=== PATIENT | female | born 1990 | race Caucasian/White ===

== ENCOUNTER 2019-05-21 22:57 | Emergency (ER) | payer SELFPAY ==
--- NOTE | 2019-05-21 23:01 | ED_ITS ---
HPI - Female Genitourinary General: Chief complaint: Abdominal Pain Stated complaint: blood in urine Time Seen by Provider: 05/21/19 23:01 Source: patient Mode of arrival: ambulatory Limitations: no limitations History of Present Illness: HPI Narrative: Patient is a 28-year-old female who presents to ED today with complaints of dysuria and hematuria; patient also complains of some lower back pain; she states she has a history of UTIs states her symptoms today feel similar; patient denies nausea, vomiting, changes in bowel movements; she does have a little bit of lower suprapubic abdominal pain; patient denies vaginal discharge or vaginal odor; she has no new sexual partners or concern for STDs; denies flank pain MD elicited complaint: dysuria, UTI and back pain Vaginal discharge: none Vaginal bleeding: none Urinary symptoms: Dysuria and Hematuria Exacerbating factors: none Relieving factors: none Associated symptoms: Reports abdominal pain; Deny nausea or syncope Sexual activity: Yes Patient : No Review of Systems Const: Denies: fever or chills Card: Denies: chest pain, palpitations, irregular heart rhythm, lightheadedness, syncope or shortness of breath on exertion Resp: Denies: shortness of breath, productive cough or pain on inspiration GI: Reports: abdominal pain; Denies: nausea, vomiting, heartburn/indigestion, diarrhea, constipation, change in bowel habits, painful bowel movements or rectal pain : Reports: painful urination and blood in urine; Denies: flank pain, difficulty urinating, urinary frequency, urinary urgency or urinary hesitancy Musc: Reports: back pain; Denies: neck pain or joint pain Skin/Breast: Denies: rash PFSH ED PFSH: Statuses (acute, chronic, etc) shown below reflect problem list status as previously entered and may not be historically accurate Social History Smoking and tobacco status: current every day smoker Physical Exam Const: COMMON NORMALS: no apparent distress, average body habitus, oriented x3, alert and well nourished Resp: COMMON NORMALS: normal respiratory effort and clear to auscultation bilaterally AUSCULTATION: clear to auscultation bilaterally Cardio: COMMON NORMALS: regular rate and regular rhythm RATE: regular rate RHYTHM: regular rhythm GI: COMMON NORMALS: normal to inspection, nondistended, normoactive bowel sounds, soft to palpation, no hepatosplenomegaly and no masses PALPATION: Yes soft, Yes tender (suprapubic) and Yes no hepatosplenomegaly : COMMON NORMALS: Yes no CVA tenderness BLADDER/KIDNEY EXAM: Yes no CVA tenderness Back/Pelvis: COMMON NORMALS: no CVA tenderness OTHER: TTP lower back Neuro: COMMON NORMALS: oriented x3 SENSORIUM/ORIENTATION: Yes alert Skin: COMMON NORMALS: no rashes or lesions noted GENERAL SKIN EXAM: no rashes or lesions noted Course Vital Signs: Vital signs: Vital Signs Temperature 97.6 F 05/21/19 23:02 Pulse Rate 68 05/21/19 23:02 Respiratory Rate 18 05/21/19 23:02 Blood Pressure 98/52 05/21/19 23:02 Pulse Oximetry 98 05/21/19 23:02 MDM - Female Lab Data: Labs: Lab Results 05/21/19 05/21/19 05/21/19 Range/Units 23:19 23:28 23:28 WBC 8.3 (4.0-10.0) 10^3/ uL RBC 4.55 (4.1-5.3) 10^6/u L Hgb 10.9 L (11.5-15.3) g/dL Hct 35.1 L (37.0-47.0) % MCV 77.1 L (81-99) fL MCH 24.0 L (28.0-34.0) pg MCHC 31.1 (30.0-36.0) g/dL RDW 15.7 H (12.1-15.1) % Plt Count 272 (130-400) 10^3/c mm MPV 12.1 H (7.4-10.4) fL Neut % (Auto) 63.6 % Lymph % (Auto) 28.1 % [place] % (Auto) 6.2 % Eos % (Auto) 1.1 % Baso % (Auto) 0.6 % Neut # (Auto) 5.3 (1.8-7.7) 10^3/u L Lymph # (Auto) 2.3 (0.8-4.8) 10^3/u L [place] # (Auto) 0.5 (0.2-0.9) 10^3/u L Eos # (Auto) 0.1 (0.0-0.8) 10^3/u L Baso # (Auto) 0.1 (0.0-0.1) 10^3/u L Nucleated RBC % (a uto) 0 % Nucleated RBCs # 0.0 /100WBC Sodium (136-145) mmol/L Potassium (3.5-5.1) mmol/L Chloride (98-107) mmol/L Carbon Dioxide (22-29) mmol/L Anion Gap (5-19) BUN (6-20) mg/dL Creatinine (0.5-0.9) mg/dL GFR Calculation (90-130) mL/min Glucose (74-109) mg/dL Calcium (8.5-10.5) mg/dL Total Bilirubin (0.15-1.2) mg/dL AST (0-32) U/L ALT (0-33) U/L Alkaline Phosphata se (35-105) IU/L Total Protein (6.6-8.7) g/dL Albumin (3.5-5.2) g/dL Globulin (1.3-4.6) g/dL Urine Color Dark yellow (Yellow) Urine Appearance Hazy A (CLEAR) Urine pH 8 H (5-7) Ur Specific Gravit y 1.010 (1.005-1.030) Urine Protein Trace (Negative) Urine Glucose (UA) Norm (Normal) Urine Ketones Negative (Negative) Urine Occult Blood 3+ H (Negative) Urine Nitrate Positive H (Negative) Urine Bilirubin 1+ H (NEGATIVE) Prot Sulfosalicyli c Acd Negative Urine Urobilinogen 1 H (Negative) mg/dL Ur Leukocyte Lizzeth ase Negative (Negative) Urine RBC 0-4 H (0-2) /hpf Urine WBC Rare (0-5) /hpf Ur Squamous Epith Cells 10-15 H (0-5) Amorphous Sediment 2+ Urine Bacteria 1+ H (NONE) Urine Mucus N Urine HCG, Qual Negative (Negative) 05/21/19 Range/Units 23:28 WBC (4.0-10.0) 10^3/ uL RBC (4.1-5.3) 10^6/u L Hgb (11.5-15.3) g/dL Hct (37.0-47.0) % MCV (81-99) fL MCH (28.0-34.0) pg MCHC (30.0-36.0) g/dL RDW (12.1-15.1) % Plt Count (130-400) 10^3/c mm MPV (7.4-10.4) fL Neut % (Auto) % Lymph % (Auto) % [place] % (Auto) % Eos % (Auto) % Baso % (Auto) % Neut # (Auto) (1.8-7.7) 10^3/u L Lymph # (Auto) (0.8-4.8) 10^3/u L [place] # (Auto) (0.2-0.9) 10^3/u L Eos # (Auto) (0.0-0.8) 10^3/u L Baso # (Auto) (0.0-0.1) 10^3/u L Nucleated RBC % (a uto) % Nucleated RBCs # /100WBC Sodium 140 (136-145) mmol/L Potassium 3.9 (3.5-5.1) mmol/L Chloride 104 (98-107) mmol/L Carbon Dioxide 25 (22-29) mmol/L Anion Gap 14.9 (5-19) BUN 12 (6-20) mg/dL Creatinine 0.8 (0.5-0.9) mg/dL GFR Calculation 84.8 L (90-130) mL/min Glucose 88 (74-109) mg/dL Calcium 9.2 (8.5-10.5) mg/dL Total Bilirubin 0.2 (0.15-1.2) mg/dL AST 13 (0-32) U/L ALT 10 (0-33) U/L Alkaline Phosphata se 57 (35-105) IU/L Total Protein 7.1 (6.6-8.7) g/dL Albumin 4.5 (3.5-5.2) g/dL Globulin 2.6 (1.3-4.6) g/dL Urine Color (Yellow) Urine Appearance (CLEAR) Urine pH (5-7) Ur Specific Gravit y (1.005-1.030) Urine Protein (Negative) Urine Glucose (UA) (Normal) Urine Ketones (Negative) Urine Occult Blood (Negative) Urine Nitrate (Negative) Urine Bilirubin (NEGATIVE) Prot Sulfosalicyli c Acd Urine Urobilinogen (Negative) mg/dL Ur Leukocyte Lizzeth ase (Negative) Urine RBC (0-2) /hpf Urine WBC (0-5) /hpf Ur Squamous Epith Cells (0-5) Amorphous Sediment Urine Bacteria (NONE) Urine Mucus Urine HCG, Qual (Negative) Discharge Plan Discharge Patient Disposition: Home, Self-Care Clinical Impression: Acute cystitis with hematuria Condition: Stable Prescriptions: New Macrobid 100 mg capsule 100 mg PO BID 7 Days Qty: 14 RF: 0 Discharge Orders: Discharge Order (Routine); Ordered 05/22/19 Ordered By: Melisa South Referrals: Isaiah Arshad MD [Primary Care Provider] - Discharge Diet: Usual diet Discharge Activity: Resume usual activity Activity Restrictions/Additional Instructions: Follow-up with primary care in 3 to 4 days if symptoms do not begin to improve. You may return to the emergency department for worsening pain, severe flank pain, fevers greater than 100.4, or inability to keep down your medications. 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
[2019-05-21 23:02] VITALS: BP 98/52; PULSE 68; RESP 18; TEMP 36.4; O2SAT 98; BMI 24.0
[2019-05-21 23:35] LABS: Basophils # 0.1 10^3/uL (0.0-0.1); Basophils % 0.6 %; Eosinophils # 0.1 10^3/uL (0.0-0.8); Eosinophils % 1.1 %; Hematocrit 35.1 % (37.0-47.0); Hemoglobin 10.9 g/dL (11.5-15.3); Lymphocytes # 2.3 10^3/uL (0.8-4.8); Lymphocytes % 28.1 %; Mean Corpuscular HGB Conc 31.1 g/dL (30.0-36.0); Mean Corpuscular Volume 77.1 fL (81-99); Mean Platelet Volume 12.1 fL (7.4-10.4); Monocytes # 0.5 10^3/uL (0.2-0.9); Monocytes % 6.2 %; Neutrophils # 5.3 10^3/uL (1.8-7.7); Neutrophils % 63.6 %; Nucleated Red Blood Cells % 0 %; Platelet Count 272 10^3/cmm (130-400); Red Blood Count 4.55 10^6/uL (4.1-5.3); Red Cell Distribution Width 15.7 % (12.1-15.1); White Blood Count 8.3 10^3/uL (4.0-10.0)
[2019-05-21 23:46] LABS: Bacteria Urine 1+; Bilirubin Urine 1+ (NEGATIVE); Blood Urine 3+ (Negative); Glucose Urine UA Norm (Normal); Ketones Urine Negative (Negative); Leukocyte Esterase Urine Negative (Negative); Nitrate Urine Positive (Negative); Protein Urine Trace (Negative); RBC Urine 0-4 /hpf (0-2); Sulfosalicylic Acid Urine Negative; Urine Appearance Hazy (CLEAR); Urine Color Dark Yellow (Yellow); Urobilinogen Urine 1 mg/dL (Negative); WBC Urine RARE /hpf (0-5); pH Urine 8 (5-7)
[2019-05-21 23:47] LABS: Add Urine Culture? No; Amorphous Sediment Urine 2+; Mucus Urine N
[2019-05-21 23:49] LABS: Alanine Aminotransferase 10 U/L (0-33); Albumin Level 4.5 g/dL (3.5-5.2); Alkaline Phosphatase 57 IU/L (35-105); Anion Gap 14.9 (5-19); Aspartate Amino Transferase 13 U/L (0-32); Blood Urea Nitrogen 12 mg/dL (6-20); Calcium 9.2 mg/dL (8.5-10.5); Carbon Dioxide 25 mmol/L (22-29); Chloride 104 mmol/L (98-107); Globulin 2.6 g/dL (1.3-4.6); Glomerular Filtration Rate 84.8 mL/min (90-130); Glucose 88 mg/dL (74-109); Potassium 3.9 mmol/L (3.5-5.1); Sodium 140 mmol/L (136-145); Total Bilirubin 0.2 mg/dL (0.15-1.2); Total Protein 7.1 g/dL (6.6-8.7)
== END 2019-05-22 00:19 | disposition home or self-care (01) ==
PROVIDERS: Emergency Provider Physician Assistant; Family Provider Family Medicine; PCP Family Medicine
DX: N30.01 Acute cystitis with hematuria (principal); F17.210 Nicotine dependence, cigarettes, uncomplicated
CPT/HCPCS: 36415; 80053; 81001; 81025; 85025; 99282

== ENCOUNTER 2020-01-08 15:45 | Emergency (ER) | payer SELFPAY ==
[2020-01-08 16:07] VITALS: BP 110/73; PULSE 69; RESP 18; TEMP 36.8; O2SAT 98; BMI 25.0
[2020-01-08 16:14] VITALS: BP 110/73; RESP 16
[2020-01-08] MEDS: ondansetron 2 mg/ML SDV 2 mL 4 MG IVP (16:30)
[2020-01-08] MEDS: sodium chloride 0.9% 1,000 ML 999 ML IV (16:31)
[2020-01-08 16:36] LABS: Add Urine Microscopic? NO
[2020-01-08 16:38] LABS: Bilirubin Urine Neg (Negative); Blood Urine Neg (Negative); Glucose Urine UA Norm (Normal); Ketones Urine Negative (Negative); Leukocyte Esterase Urine Negative (Negative); Nitrate Urine Negative (Negative); Protein Urine Neg (Negative); Specific Gravity, Urine 1.005 (1.005-1.030); Urine Appearance Clear (CLEAR); Urine Color Colorless (Yellow); Urobilinogen Urine Norm (Negative); pH Urine 7 (5-7)
[2020-01-08 16:38] LABS: Basophils # 0.1 10^3/uL (0.0-0.1); Basophils % 0.6 %; Eosinophils # 0.1 10^3/uL (0.0-0.8); Eosinophils % 0.7 %; Hematocrit 38.4 % (37.0-47.0); Hemoglobin 12.2 g/dL (11.5-15.3); Lymphocytes # 2.4 10^3/uL (0.8-4.8); Lymphocytes % 24.8 %; Mean Corpuscular HGB Conc 31.8 g/dL (30.0-36.0); Mean Corpuscular Hemoglobin 25.1 pg (28.0-34.0); Mean Platelet Volume 12.1 fL (7.4-10.4); Monocytes # 0.5 10^3/uL (0.2-0.9); Monocytes % 5.3 %; Neutrophils # 6.54 10^3/uL (1.8-7.7); Neutrophils % 68.4 %; Nucleated Red Blood Cells % 0 %; Platelet Count 250 10^3/cmm (130-400); Red Blood Count 4.86 10^6/uL (4.1-5.3); Red Cell Distribution Width 16.8 % (12.1-15.1); White Blood Count 9.6 10^3/uL (4.0-10.0)
--- NOTE | 2020-01-08 16:47 | ED_ITS ---
HPI - Nausea/Vomiting/Diarrhea General: Chief complaint: Nausea/Vomiting/Diarrhea Stated complaint: N/V Time Seen by Provider: 01/08/20 16:10 History of Present Illness: HPI Narrative: 29-year-old female comes in complaining nausea vomiting for the last 3 to 4 days. Denies cough fever sinus congestion. She denies any melena coffee-ground emesis no hematochezia or hematemesis. She denies any abdominal pain or chest pain. She not had any sick contacts. MD elicited complaint: nausea and vomiting Onset (ago): day(s) (3-4) Description of vomiting: food contents Associated nausea: Yes Associated abdominal pain: No Location of pain: None Severity: moderate Exacerbating factors: none Relieving factors: none Associated symtoms: Reports anorexia, malaise and nausea; Denies altered mental status, anxiety, bloating, change in vision, chest pain, cough, diaphoresis, decreased urine output, dizziness, dysuria, epistaxis, fatigue, fecal incontinence, fevers/chills, headache(s), myalgias, numbness, palpitations, rash, short of breath, syncope, tenesmus, tinnitus, weakness or other Treatment prior to arrival: none Review of Systems Const: Reports: malaise; Denies: fatigue or diaphoresis Eyes: Denies: change in vision ENMT: Denies: tinnitus or epistaxis Card: Denies: chest pain, palpitations or syncope Resp: Denies: dyspnea, productive cough or non-productive cough GI: Reports: nausea; Denies: bloating or fecal incontinence : Denies: dysuria Skin/Breast: Denies: rash or pruritus Neuro: Denies: headache(s) or dizziness Psych: Denies: anxiety PFSH ED PFSH: Medical History (Updated 01/08/20 @ 17:21 by Bennett Baumann DO) Pyelonephritis Surgical History (Updated 01/08/20 @ 16:53 by Bennett Baumann DO) H/O tubal ligation History of breast augmentation Social History Smoking and tobacco status: current every day smoker Female Reproductive History: Date of last menstrual period: 05/11/19 Physical Exam Const: COMMON NORMALS: average body habitus, patient oriented x3 and alert EXAM LIMITATIONS: no altered mental status GENERAL APPEARANCE: cooperative, comfortable, well kempt and well developed NUTRITIONAL APPEARANCE: obese ORIENTATION/CONSCIOUSNESS: Yes awake, Yes oriented to person and Yes oriented to place HENMT: COMMON NORMALS: normocephalic, atraumatic and EAC's normal HEAD & SCALP: normocephalic and atraumatic EXTERNAL AUDITORY CANAL: EAC's normal Eye: COMMON NORMALS: Equal, round and reactive pupils present, EOMs intact vince aterally, conjunctivae normal and no scleral icterus CONJUNCTIVA: Yes conjunctivae normal PUPIL: Yes Equal, round and reactive pupils present Neck/C-Spine: COMMON NORMALS: full ROM, no lymphadenopathy, supple, no meningeal signs and Thyroid normal THYROID: Thyroid normal and asymmetrical Lymph: LYMPHATIC: no lymphadenopathy noted Resp: COMMON NORMALS: normal respiratory effort, No retractions, No use of accessory muscles and clear to auscultation bilaterally AUSCULTATION: clear to auscultation bilaterally Cardio: COMMON NORMALS: regular rate and regular rhythm RATE: regular rate RHYTHM: regular rhythm HEART SOUNDS: no murmurs GI: COMMON NORMALS: Normal to inspection, nondistended, normoactive bowel sounds present, Soft to palpation and No hepatosplenomegaly present PALPATION: Yes Soft to palpation and Yes No hepatosplenomegaly present : COMMON NORMALS: Yes no CVA tenderness BLADDER/KIDNEY EXAM: Yes no CVA tenderness Back/Pelvis: COMMON NORMALS: no CVA tenderness LUMBAR SPINE/LOWER BACK: Yes normal to inspection Extremity: COMMON NORMALS: no clubbing, cyanosis or edema, no calf tenderness and no pedal edema Neuro: COMMON NORMALS: patient oriented x3 SENSORIUM/ORIENTATION: Yes alert, Yes oriented to person and Yes oriented to place MENINGEAL SIGNS: Yes no meningeal signs Psych: APPEARANCE: Yes well kempt Skin: COMMON NORMALS: no rashes or lesions noted and turgor normal GENERAL SKIN EXAM: no rashes or lesions noted and turgor normal Course Vital Signs: Vital signs: Vital Signs Temperature 98.2 F 01/08/20 16:07 Pulse Rate 69 01/08/20 16:07 Respiratory Rate 16 01/08/20 16:14 Blood Pressure 110/73 01/08/20 16:14 Pulse Oximetry 98 01/08/20 16:07 MDM - Nausea/Vomiting/Diarrhea MDM Narrative: Medical decision making narrative: Reviewed findings with the patient. Recommend she maintain self quarantine until the culture results are back. Also recommend that she do clear liquid diet for 2 to 3 days and advance as tolerated. Return if has any worsening symptoms. Lab Data: Labs: Lab Results 01/08/20 01/08/20 01/08/20 Range/Units 16:25 16:28 16:28 WBC 9.6 (4.0-10.0) 10^3/ uL RBC 4.86 (4.1-5.3) 10^6/u L Hgb 12.2 (11.5-15.3) g/dL Hct 38.4 (37.0-47.0) % MCV 79.0 L (81-99) fL MCH 25.1 L (28.0-34.0) pg MCHC 31.8 (30.0-36.0) g/dL RDW 16.8 H (12.1-15.1) % Plt Count 250 (130-400) 10^3/c mm MPV 12.1 H (7.4-10.4) fL Neut % (Auto) 68.4 % Lymph % (Auto) 24.8 % [place] % (Auto) 5.3 % Eos % (Auto) 0.7 % Baso % (Auto) 0.6 % Neut # (Auto) 6.54 (1.8-7.7) 10^3/u L Lymph # (Auto) 2.4 (0.8-4.8) 10^3/u L [place] # (Auto) 0.5 (0.2-0.9) 10^3/u L Eos # (Auto) 0.1 (0.0-0.8) 10^3/u L Baso # (Auto) 0.1 (0.0-0.1) 10^3/u L Nucleated RBC % (a uto) 0 % Nucleated RBCs # 0.0 /100WBC Sodium 137 (136-145) mmol/L Potassium 3.7 (3.5-5.1) mmol/L Chloride 104 (98-107) mmol/L Carbon Dioxide 22 (22-29) mmol/L Anion Gap 14.7 (5-19) BUN 10 (6-20) mg/dL Creatinine 0.7 (0.5-0.9) mg/dL GFR Calculation 98.3 (90-130) mL/min Glucose 110 (65-115) mg/dL Calculated Osmolal ity 281 L (285-295) mOsm/k g Calcium 9.1 (8.5-10.5) mg/dL Total Bilirubin 0.3 (0.15-1.2) mg/dL AST 15 (0-32) U/L ALT 11 (0-33) U/L Alkaline Phosphata se 56 (35-105) IU/L Total Protein 7.9 (6.6-8.7) g/dL Albumin 4.7 (3.5-5.2) g/dL Globulin 3.2 (1.3-4.6) g/dL Lipase 37 (13-60) U/L HCG, Qual (Negative) Urine Color Colorless (Yellow) Urine Appearance Clear (CLEAR) Urine pH 7 (5-7) Ur Specific Gravit y 1.005 (1.005-1.030) Urine Protein Neg (Negative) Urine Glucose (UA) Norm (Normal) Urine Ketones Negative (Negative) Urine Blood Neg (Negative) Urine Nitrate Negative (Negative) Urine Bilirubin Neg (Negative) Urine Urobilinogen Norm (Negative) mg/dL Ur Leukocyte Lizzeth ase Negative (Negative) 01/08/20 Range/Units 16:28 WBC (4.0-10.0) 10^3/ uL RBC (4.1-5.3) 10^6/u L Hgb (11.5-15.3) g/dL Hct (37.0-47.0) % MCV (81-99) fL MCH (28.0-34.0) pg MCHC (30.0-36.0) g/dL RDW (12.1-15.1) % Plt Count (130-400) 10^3/c mm MPV (7.4-10.4) fL Neut % (Auto) % Lymph % (Auto) % [place] % (Auto) % Eos % (Auto) % Baso % (Auto) % Neut # (Auto) (1.8-7.7) 10^3/u L Lymph # (Auto) (0.8-4.8) 10^3/u L [place] # (Auto) (0.2-0.9) 10^3/u L Eos # (Auto) (0.0-0.8) 10^3/u L Baso # (Auto) (0.0-0.1) 10^3/u L Nucleated RBC % (a uto) % Nucleated RBCs # /100WBC Sodium (136-145) mmol/L Potassium (3.5-5.1) mmol/L Chloride (98-107) mmol/L Carbon Dioxide (22-29) mmol/L Anion Gap (5-19) BUN (6-20) mg/dL Creatinine (0.5-0.9) mg/dL GFR Calculation (90-130) mL/min Glucose (65-115) mg/dL Calculated Osmolal ity (285-295) mOsm/k g Calcium (8.5-10.5) mg/dL Total Bilirubin (0.15-1.2) mg/dL AST (0-32) U/L ALT (0-33) U/L Alkaline Phosphata se (35-105) IU/L Total Protein (6.6-8.7) g/dL Albumin (3.5-5.2) g/dL Globulin (1.3-4.6) g/dL Lipase (13-60) U/L HCG, Qual Negative (Negative) Urine Color (Yellow) Urine Appearance (CLEAR) Urine pH (5-7) Ur Specific Gravit y (1.005-1.030) Urine Protein (Negative) Urine Glucose (UA) (Normal) Urine Ketones (Negative) Urine Blood (Negative) Urine Nitrate (Negative) Urine Bilirubin (Negative) Urine Urobilinogen (Negative) mg/dL Ur Leukocyte Lizzeth ase (Negative) Discharge Plan Discharge Patient Disposition: Home Clinical Impression: Gastroenteritis Condition: Stable Prescriptions: New Zofran 4 mg tablet 4 mg PO Q6H PRN (Reason: nausea and vomiting) Qty: 20 RF: 0 No Action 28-800 mg-mcg Tablet 1 tab PO DAILY RF: 0 Discharge Orders: Discharge Order (Routine); Ordered 01/08/20 Ordered By: Bennett Baumann Referrals: Isaiah Arshad MD [Primary Care Provider] - Discharge Diet: Clear Liquid Discharge Activity: Resume usual activity Activity Restrictions/Additional Instructions: Liquid diet x3 days and advance as tolerated. 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
[2020-01-08 17:05] LABS: HCG, Serum Qual Negative (Negative)
[2020-01-08 17:12] LABS: Alanine Aminotransferase 11 U/L (0-33); Albumin Level 4.7 g/dL (3.5-5.2); Alkaline Phosphatase 56 IU/L (35-105); Anion Gap 14.7 (5-19); Aspartate Amino Transferase 15 U/L (0-32); Blood Urea Nitrogen 10 mg/dL (6-20); Calcium 9.1 mg/dL (8.5-10.5); Carbon Dioxide 22 mmol/L (22-29); Chloride 104 mmol/L (98-107); Globulin 3.2 g/dL (1.3-4.6); Glomerular Filtration Rate 98.3 mL/min (90-130); Glucose 110 mg/dL (65-115); Lipase 37 U/L (13-60); Osmolality Calculated 281 mOsm/kg (285-295); Potassium 3.7 mmol/L (3.5-5.1); Sodium 137 mmol/L (136-145); Total Bilirubin 0.3 mg/dL (0.15-1.2); Total Protein 7.9 g/dL (6.6-8.7)
== END 2020-01-08 17:45 | disposition home or self-care (01) ==
PROVIDERS: Emergency Provider Family Medicine; Family Provider Family Medicine; PCP Family Medicine
DX: K52.9 Noninfective gastroenteritis and colitis, unspecified (principal); F17.210 Nicotine dependence, cigarettes, uncomplicated
CPT/HCPCS: 12345; 80053; 81003; 83690; 84703; 85025; 87635; 96361; 96374; 96375; 99283; J2405; J7030

== ENCOUNTER 2020-03-30 15:52 | Emergency (ER) | payer MEDICAID, SELFPAY ==
[2020-03-30 15:59] VITALS: BP 108/73; PULSE 82; RESP 18; TEMP 36.4; O2SAT 99; BMI 23.6
--- NOTE | 2020-03-30 16:18 | ED_ITS ---
HPI - Female Genitourinary General: Chief complaint: Abdominal Pain Stated complaint: L SIDE ABD PAIN Time Seen by Provider: 03/30/20 16:07 Source: patient Mode of arrival: ambulatory Limitations: no limitations History of Present Illness: HPI Narrative: 29-year-old female has been having left lower quadrant left flank pain that began earlier this morning. States pain is sharp in nature and severe. States pain is a 7 out of 10. Denies any vomiting but has had nausea. Patient is currently on her menstruation. She denies any vaginal discharge. She has had a tubal ligation. She states she has had kidney infections in the past and this feels similar. Associated symptoms: Reports abdominal pain and nausea; Deny headache(s) Date of Last Menstrual Period: 05/11/19 Review of Systems Const: Denies: fever(s), chills, body aches or change in appetite Eyes: Denies: blurry vision or eye discomfort ENMT: Denies: throat pain or dental pain Card: Denies: chest pain Resp: Denies: dyspnea GI: Reports: abdominal pain and nausea : Reports: flank pain Musc: Denies: neck pain or back pain Skin/Breast: Denies: rash Neuro: Denies: headache(s) Psych: Denies: depression Reji/Lymph: Denies: easy bruising All/Imm: Denies: urticaria PFSH ED PFSH: Medical History (Updated 03/30/20 @ 17:59 by Jarocho Vergara MD) Pyelonephritis Surgical History (Updated 01/08/20 @ 16:53 by Bennett Baumann DO) H/O tubal ligation History of breast augmentation Social History Smoking and tobacco status: current every day smoker Female Reproductive History: Date of last menstrual period: 05/11/19 Physical Exam Const: COMMON NORMALS: no acute distress, patient oriented x3 and healthy appearing HENMT: COMMON NORMALS: normocephalic and atraumatic HEAD & SCALP: normocephalic and atraumatic Eye: COMMON NORMALS: Equal, round and reactive pupils present and EOMs intact bilaterally PUPIL: Yes Equal, round and reactive pupils present Neck/C-Spine: COMMON NORMALS: full ROM and supple Chest: COMMONS NORMALS: normal inspection of the chest and normal palpation of entire chest wall Resp: COMMON NORMALS: normal respiratory effort, No retractions, No use of accessory muscles and clear to auscultation bilaterally AUSCULTATION: clear to auscultation bilaterally Cardio: COMMON NORMALS: regular rate, regular rhythm and No murmurs present (Cardio) RATE: regular rate RHYTHM: regular rhythm GI: COMMON NORMALS: Normal to inspection, nondistended, normoactive bowel sounds present, Soft to palpation and no masses PALPATION: Yes Soft to palpation OTHER: Tenderness to left flank and left lower quadrant Extremity: COMMON NORMALS: normal to inspection and full ROM Neuro: COMMON NORMALS: patient oriented x3, moves all extremities and no focal motor deficits Psych: COMMON NORMALS: mental status grossly normal, Normal thought process present and cooperative THOUGHT PROCESS: Normal thought process present Skin: COMMON NORMALS: no rashes or lesions noted and no wounds GENERAL SKIN EXAM: no rashes or lesions noted Course Vital Signs: Vital signs: Vital Signs Temperature 97.5 F L 03/30/20 15:59 Pulse Rate 75 03/30/20 18:00 Respiratory Rate 18 03/30/20 18:08 Blood Pressure 113/75 03/30/20 18:00 Pulse Oximetry 97 03/30/20 18:00 MDM - Female MDM Narrative: Medical decision making narrative: Patient presents here with abdominal pain. CT and blood work are all normal and her pain is improved. She is stable for discharge follow-up with PCP and return if worsening. She has no signs of surgical abdomen. Lab Data: Labs: Lab Results 03/30/20 03/30/20 03/30/20 Range/Units 16:34 16:34 16:45 WBC 12.6 H (4.0-10.0) 10^3/ uL RBC 4.75 (4.1-5.3) 10^6/u L Hgb 12.0 (11.5-15.3) g/dL Hct 36.9 L (37.0-47.0) % MCV 77.7 L (81-99) fL MCH 25.3 L (28.0-34.0) pg MCHC 32.5 (30.0-36.0) g/dL RDW 16.1 H (12.1-15.1) % Plt Count 255 (130-400) 10^3/c mm MPV 12.1 H (7.4-10.4) fL Neut % (Auto) 79.2 % Lymph % (Auto) 15.1 % [place] % (Auto) 4.8 % Eos % (Auto) 0.2 % Baso % (Auto) 0.4 % Neut # (Auto) 9.99 H (1.8-7.7) 10^3/u L Lymph # (Auto) 1.9 (0.8-4.8) 10^3/u L [place] # (Auto) 0.6 (0.2-0.9) 10^3/u L Eos # (Auto) 0.0 (0.0-0.8) 10^3/u L Baso # (Auto) 0.1 (0.0-0.1) 10^3/u L Nucleated RBC % (a uto) 0 % Nucleated RBCs # 0.0 /100WBC Sodium 140 (136-145) mmol/L Potassium 3.5 (3.5-5.1) mmol/L Chloride 103 (98-107) mmol/L Carbon Dioxide 24 (22-29) mmol/L Anion Gap 16.5 (5-19) BUN 6 (6-20) mg/dL Creatinine 0.6 (0.5-0.9) mg/dL GFR Calculation 117.4 (90-130) mL/min Glucose 89 (65-115) mg/dL Calculated Osmolal ity 287 (285-295) mOsm/k g Calcium 9.1 (8.5-10.5) mg/dL Total Bilirubin 0.4 (0.15-1.2) mg/dL AST 12 (0-32) U/L ALT 12 (0-33) U/L Alkaline Phosphata se 52 (35-105) IU/L Total Protein 7.0 (6.6-8.7) g/dL Albumin 4.2 (3.5-5.2) g/dL Globulin 2.8 (1.3-4.6) g/dL Lipase 18 (13-60) U/L HCG, Qual Negative (Negative) Urine Color (Yellow) Urine Appearance (CLEAR) Urine pH (5-7) Ur Specific Gravit y (1.005-1.030) Urine Protein (Negative) Urine Glucose (UA) (Normal) Urine Ketones (Negative) Urine Blood (Negative) Urine Nitrate (Negative) Urine Bilirubin (Negative) Urine Urobilinogen (Negative) mg/dL Ur Leukocyte Lizzeth ase (Negative) Urine RBC (0-2) /hpf Urine WBC (0-5) /hpf Ur Squamous Epith Cells (0-5) /hpf Amorphous Sediment Urine Bacteria (NONE) /hpf Urine Mucus /hpf 03/30/20 Range/Units 16:45 WBC (4.0-10.0) 10^3/ uL RBC (4.1-5.3) 10^6/u L Hgb (11.5-15.3) g/dL Hct (37.0-47.0) % MCV (81-99) fL MCH (28.0-34.0) pg MCHC (30.0-36.0) g/dL RDW (12.1-15.1) % Plt Count (130-400) 10^3/c mm MPV (7.4-10.4) fL Neut % (Auto) % Lymph % (Auto) % [place] % (Auto) % Eos % (Auto) % Baso % (Auto) % Neut # (Auto) (1.8-7.7) 10^3/u L Lymph # (Auto) (0.8-4.8) 10^3/u L [place] # (Auto) (0.2-0.9) 10^3/u L Eos # (Auto) (0.0-0.8) 10^3/u L Baso # (Auto) (0.0-0.1) 10^3/u L Nucleated RBC % (a uto) % Nucleated RBCs # /100WBC Sodium (136-145) mmol/L Potassium (3.5-5.1) mmol/L Chloride (98-107) mmol/L Carbon Dioxide (22-29) mmol/L Anion Gap (5-19) BUN (6-20) mg/dL Creatinine (0.5-0.9) mg/dL GFR Calculation (90-130) mL/min Glucose (65-115) mg/dL Calculated Osmolal ity (285-295) mOsm/k g Calcium (8.5-10.5) mg/dL Total Bilirubin (0.15-1.2) mg/dL AST (0-32) U/L ALT (0-33) U/L Alkaline Phosphata se (35-105) IU/L Total Protein (6.6-8.7) g/dL Albumin (3.5-5.2) g/dL Globulin (1.3-4.6) g/dL Lipase (13-60) U/L HCG, Qual (Negative) Urine Color Red (Yellow) Urine Appearance Bloody A (CLEAR) Urine pH 7.0 (5-7) Ur Specific Gravit y 1.010 (1.005-1.030) Urine Protein 1+ H (Negative) Urine Glucose (UA) Norm (Normal) Urine Ketones Negative (Negative) Urine Blood 3+ H (Negative) Urine Nitrate Negative (Negative) Urine Bilirubin Neg (Negative) Urine Urobilinogen Norm (Negative) mg/dL Ur Leukocyte Lizzeth ase Negative (Negative) Urine RBC Too numerous to c nt H (0-2) /hpf Urine WBC 0-4 H (0-5) /hpf Ur Squamous Epith Cells 5-10 H (0-5) /hpf Amorphous Sediment Not Reportable Urine Bacteria Trace (NONE) /hpf Urine Mucus 1+ /hpf Imaging Data: CT Abd/Pel: Radiologist's impression: [address] [place] [address] CT Scan Report Signed Patient: Mercedes Li Unit #: [id number] : 1990 Age/Sex: 29 / F ADM Date: 03/30/20 Loc: ER Room/Bed: Attending Dr: Ordering Provider/Ordering MD: Jarocho Vergara MD Date of Service: 03/30/20 Procedure(s): CT abdomen pelvis w con* [id number] Accession Number(s): [id number] Report Number: [id number] PROCEDURE INFORMATION: Exam: CT Abdomen And Pelvis With Contrast Exam date and time: 03/30/2020 5:26 PM Age: 29 years old Clinical indication: Nausea; Abdominal pain; Localized; Left; Prior surgery; Surgery type: Tubal; Additional info: Abd pain TECHNIQUE: Imaging protocol: Computed tomography of the abdomen and pelvis with intravenous contrast. Radiation optimization: All CT scans at this facility use at least one of these dose optimization techniques: automated exposure control; mA and/or kV adjustment per patient size (includes targeted exams where dose is matched to clinical indication); or iterative reconstruction. Contrast material: OMNI 300; Contrast volume: 75 ml; Contrast route: INTRAVENOUS (IV); COMPARISON: No relevant prior studies available. RADIATION DOSE METRICS: Total DLP (mGy-cm): 196.37 FINDINGS: Lungs: The lung bases appear unremarkable. Liver: Nonspecific 10 mm low-density lesion in the posterior segment of the right lobe of the liver, series 2, image 10. Similar 10 mm lesion seen in the medial segment of the left lobe, series 2, image 20. The liver is otherwise unremarkable. Gallbladder and bile ducts: No calcified stones. No ductal dilation. Pancreas: The pancreas is normal in appearance. No pancreatic duct dilatation. Spleen: The spleen is normal in size and appearance. Adrenal glands: The adrenal glands appear within normal limits. Kidneys and ureters: The kidneys are normal in morphology. No hydronephrosis. No solid mass. Stomach and bowel: No acute gastric abnormality demonstrated. The small bowel is unremarkable as demonstrated. No acute abnormality/inflammatory change of the colon. Appendix: The appendix is normal in appearance. No evidence of appendicitis. Intraperitoneal space: No pneumoperitoneum. No significant fluid collection. Vasculature: No abdominal aortic aneurysm. Lymph nodes: No pathologically enlarged lymph nodes are demonstrated. Urinary bladder: Unremarkable as visualized. Reproductive: Uterus and adnexa appear normal. Bones/joints: No fracture or other acute osseous abnormality. Soft tissues: Bilateral breast implants are partially demonstrated. No complication noted. The soft tissues appear unremarkable. CT/CT abdomen pelvis w con* [id number] IMPRESSION: 1. There are 2 nonspecific 10 mm low-density liver lesions identified. In a low-risk patient, this lesion is most likely to be benign and no further follow-up is recommended. In a high-risk patient, recommend follow-up MRI in 3-6 months (or earlier if warranted by the patient's specific clinical circumstances). 2. No acute abnormality demonstrated in the abdomen and pelvis. Discharge Plan Discharge Patient Disposition: Home Clinical Impression: Abdominal pain Qualifiers: Abdominal location: generalized Qualified Code(s): R10.84 - Generalized abdominal pain Condition: Stable Prescriptions: [place] 5-325 mg tablet 1 tab PO Q6H PRN (Reason: pain) Qty: 14 RF: 0 ondansetron 4 mg tablet,disintegrating 4 mg PO Q6H PRN (Reason: nausea and vomiting) Qty: 14 RF: 0 No Action 28-800 mg-mcg Tablet 1 tab PO DAILY@22 RF: 0 Discharge Orders: Discharge ED (Routine); Ordered 03/30/20 Ordered By: Jarocho Vergara Referrals: Isaiah Arshad MD [Primary Care Provider] - 1-3 days Discharge Diet: Advance as tolerated Discharge Activity: Resume usual activity Patient Instructions: Abdominal Pain (ED) Coding Level of Care Code ED Licensed Club Manager for Chg Fwd Exam Comprehensive
[2020-03-30 16:22] VITALS: BP 109/79
[2020-03-30 16:43] VITALS: RESP 18
[2020-03-30] MEDS: ondansetron 2 mg/ML SDV 2 mL 4 MG IVP (16:43)
[2020-03-30] MEDS: morphine 4 mg/mL SDV 1 mL IVP (16:43)
[2020-03-30 16:47] LABS: Basophils # 0.1 10^3/uL (0.0-0.1); Basophils % 0.4 %; Eosinophils % 0.2 %; Hematocrit 36.9 % (37.0-47.0); Lymphocytes # 1.9 10^3/uL (0.8-4.8); Lymphocytes % 15.1 %; Mean Corpuscular HGB Conc 32.5 g/dL (30.0-36.0); Mean Corpuscular Hemoglobin 25.3 pg (28.0-34.0); Mean Corpuscular Volume 77.7 fL (81-99); Mean Platelet Volume 12.1 fL (7.4-10.4); Monocytes # 0.6 10^3/uL (0.2-0.9); Monocytes % 4.8 %; Neutrophils # 9.99 10^3/uL (1.8-7.7); Neutrophils % 79.2 %; Nucleated Red Blood Cells % 0 %; Platelet Count 255 10^3/cmm (130-400); Red Blood Count 4.75 10^6/uL (4.1-5.3); Red Cell Distribution Width 16.1 % (12.1-15.1); White Blood Count 12.6 10^3/uL (4.0-10.0)
[2020-03-30 17:08] LABS: Alanine Aminotransferase 12 U/L (0-33); Albumin Level 4.2 g/dL (3.5-5.2); Alkaline Phosphatase 52 IU/L (35-105); Anion Gap 16.5 (5-19); Aspartate Amino Transferase 12 U/L (0-32); Blood Urea Nitrogen 6 mg/dL (6-20); Calcium 9.1 mg/dL (8.5-10.5); Carbon Dioxide 24 mmol/L (22-29); Chloride 103 mmol/L (98-107); Globulin 2.8 g/dL (1.3-4.6); Glomerular Filtration Rate 117.4 mL/min (90-130); Glucose 89 mg/dL (65-115); Lipase 18 U/L (13-60); Osmolality Calculated 287 mOsm/kg (285-295); Potassium 3.5 mmol/L (3.5-5.1); Sodium 140 mmol/L (136-145); Total Bilirubin 0.4 mg/dL (0.15-1.2)
[2020-03-30 17:08] LABS: Add Urine Microscopic? YES; Bacteria Urine TRACE /hpf; Bilirubin Urine Neg (Negative); Blood Urine 3+ (Negative); Glucose Urine UA Norm (Normal); HCG Qualitative Urine. Negative (Negative); Ketones Urine Negative (Negative); Leukocyte Esterase Urine Negative (Negative); Nitrate Urine Negative (Negative); Protein Urine 1+ (Negative); RBC Urine TOO NUMEROUS TO CNT /hpf (0-2); Urine Appearance Bloody (CLEAR); Urine Color Red (Yellow); Urobilinogen Urine Norm (Negative); WBC Urine 0-4 /hpf (0-5)
[2020-03-30 17:09] LABS: Add Urine Culture? Yes; Mucus Urine 1+ /hpf
[2020-03-30] MEDS: iohexol 300 mg/mL 100 mL Btl IV (17:33)
[2020-03-30 17:53] VITALS: RESP 16; O2SAT 99
[2020-03-30] MEDS: HYDROmorphone 1 mg/mL INJ 1 mL IVP (17:53)
[2020-03-30 18:00] VITALS: BP 113/75; PULSE 75; RESP 16; O2SAT 97
[2020-03-30 18:08] VITALS: RESP 18
== END 2020-03-30 18:08 | disposition home or self-care (01) ==
PROVIDERS: Emergency Provider Emergency Medicine; PCP Family Medicine
DX: R10.84 Generalized abdominal pain (principal); F17.210 Nicotine dependence, cigarettes, uncomplicated
CPT/HCPCS: 12345; 74177; 80053; 81001; 81025; 83690; 85025; 87077; 87086; 87186; 96374; 96375; 99282; 99283; J1170; J2270; J2405; Q9967

== ENCOUNTER 2020-04-18 22:42 | Emergency (ER) | payer MEDICAID, SELFPAY ==
[2020-04-18 22:53] VITALS: PULSE 71; RESP 16; TEMP 36.6; O2SAT 98; BMI 22.9
[2020-04-18] MEDS: ondansetron 4 MG Tablet PO (23:20)
[2020-04-18 23:49] LABS: Glucose Urine UA Norm (Normal); Ketones Urine Negative (Negative); Protein Urine Neg (Negative); Specific Gravity, Urine 1.015 (1.005-1.030); Sulfosalicylic Acid Urine Negative (Negative); Urine Appearance Hazy (CLEAR); Urine Color Yellow (Yellow); pH Urine 8 (5-7)
[2020-04-18 23:50] LABS: Add Urine Microscopic? YES; Bilirubin Urine Neg (Negative); Blood Urine 2+ (Negative); Leukocyte Esterase Urine Negative (Negative); Nitrate Urine Negative (Negative); Urobilinogen Urine 1 mg/dL (Negative)
[2020-04-19 00:01] LABS: Add Urine Culture? No; Bacteria Urine TRACE /hpf; Mucus Urine 4+ /hpf; RBC Urine 0-4 /hpf (0-2); Squamous Epithelial Cell Urine 15-25 /hpf (0-5)
--- NOTE | 2020-04-19 00:16 | ED_ITS ---
HPI - Female Genitourinary General: Chief complaint: Urogenital-Female Stated complaint: painful/bloody urination Time Seen by Provider: 04/18/20 22:43 History of Present Illness: MD elicited complaint: dysuria, UTI and flank pain (left) Pertinent past history: recurrent UTIs and pyelonephritis Onset (ago): day(s) (1) Location of symptoms: low back and flank (left) Severity: moderate Female Urogenital Radiation: Suprapubic and L Flank Severity scale (1-10): 6 Quality of pain: cramping and aching Consistency: intermittent and progressively worsening Vaginal bleeding: none Urinary symptoms: Difficulty Urinating, Dysuria, Frequency, Hematuria and Urgency Exacerbating factors: none Relieving factors: urination Associated symptoms: Reports nausea; Deny abdominal pain or headache(s) Sexual activity: Yes Patient : No Date of Last Menstrual Period: 03/28/20 Review of Systems General: Reports: 10 or more systems reviewed and unremarkable except in HPI and below Const: Denies: fever(s), chills or diaphoresis Eyes: Denies: blurry vision or eye redness ENMT: Denies: throat pain, dental pain or disequilibrium Card: Denies: chest pain, palpitations or irregular heart rhythm Resp: Denies: dyspnea, productive cough, non-productive cough or wheezing GI: Reports: nausea; Denies: abdominal pain, vomiting, heartburn, diarrhea or constipation : Reports: difficulty voiding, dysuria, urinary urgency, urinary hesitancy, oliguria and hematuria Musc: Denies: neck pain, back pain, joint pain or joint warmth Skin/Breast: Denies: rash or pruritus Neuro: Denies: headache(s), weakness in extremities or behavioral changes Psych: Denies: anxiety or depression Reji/Lymph: Denies: easy bruising PFSH ED PFSH: Medical History (Updated 04/19/20 @ 02:00 by MICHAEL Alarcon) Pyelonephritis Surgical History (Updated 01/08/20 @ 16:53 by Bennett Baumann DO) H/O tubal ligation History of breast augmentation Social History Smoking and tobacco status: current every day smoker Female Reproductive History: Date of last menstrual period: 03/28/20 Physical Exam Const: COMMON NORMALS: no acute distress, patient oriented x3, healthy appearing and alert GENERAL APPEARANCE: cooperative, well kempt, well developed and well hydrated NUTRITIONAL APPEARANCE: thin ORIENTATION/CONSCIOUSNESS: Yes awake, Yes oriented to person, Yes oriented to place and Yes oriented to time HENMT: COMMON NORMALS: normocephalic, atraumatic, Normal external nose present and moist oral mucous membranes HEAD & SCALP: normal to inspection, normocephalic and atraumatic FACE & SINUS: normal facial exam and face symmetric NOSE: Normal external nose present Eye: COMMON NORMALS: Equal, round and reactive pupils present and EOMs intact bilaterally GENERAL EYE: appearance normal, both eyes and all related structures PUPIL: Yes Equal, round and reactive pupils present Neck/C-Spine: COMMON NORMALS: full ROM and no lymphadenopathy GENERAL: Yes normal visual inspection and Yes trachea midline CERVICAL SPINE: Yes cervical ROM normal Lymph: LYMPHATIC: no lymphadenopathy noted Chest: COMMONS NORMALS: normal inspection of the chest Resp: COMMON NORMALS: normal respiratory effort and clear to auscultation bilaterally AUSCULTATION: clear to auscultation bilaterally Cardio: COMMON NORMALS: regular rhythm, S1 normal heart sound present and S2 normal heart sound present RHYTHM: regular rhythm HEART SOUNDS: S1 normal heart sound present and S2 normal heart sound present GI: COMMON NORMALS: Normal to inspection, nondistended, normoactive bowel sounds present and Soft to palpation INSPECTION: Yes normal to inspection PALPATION: Yes Soft to palpation and Yes Tenderness to palpation present (GI) Back/Pelvis: COMMON NORMALS: thoracic and lumbar spine normal to inspection and no thoracic nor lumbar tenderness GENERAL BACK: Yes CVA tenderness CVA tenderness: left Extremity: COMMON NORMALS: normal to inspection and capillary refill normal GENERAL: Yes normal exam except as noted Neuro: COMMON NORMALS: patient oriented x3 and no focal motor deficits SENSORIUM/ORIENTATION: Yes alert, Yes oriented to person, Yes oriented to place and Yes oriented to time Psych: COMMON NORMALS: mental status grossly normal, Normal thought process present, cooperative, normal affect, speech normal and activity/motor behavior normal APPEARANCE: Yes well kempt ACTIVITY/MOTOR BEHAVIOR: Yes appropriate eye contact SPEECH: Yes normal speech THOUGHT PROCESS: Normal thought process present Skin: COMMON NORMALS: no rashes or lesions noted and turgor normal GENERAL SKIN EXAM: no rashes or lesions noted and turgor normal Course ED course: 29-year-old female patient presents to the emergency department with 1 day history of hematuria. Woke this morning with hematuria then developed urinary discomfort with urgency. She reports comes to the emergency room and no one finds out what is wrong with her. She is very upset and wants everything done to find out why she continues to experience hematuria with urinary symptoms. CT abdomen pelvis renal stone protocol with CBC and chemistry ordered. White blood count 11.8 thousand, chemistry unremarkable. Urinalysis with red blood cells, trace bacteria. CT scan abdomen pelvis renal stone protocol did not reveal acute abnormalities or stone. Nausea resolved with use of Zofran, plan to treat for urinary tract infection as she has UTI symptoms, prescribed Zofran for nausea with referral to Dr. Grider for hematuria. She was appreciative with work-up tonight, agrees for follow-up with specialty. Vital Signs: Vital signs: Vital Signs Temperature 97.9 F 04/18/20 22:53 Pulse Rate 64 04/19/20 00:58 Respiratory Rate 18 04/19/20 00:58 Pulse Oximetry 100 04/19/20 00:58 MDM - Female Lab Data: Labs: Lab Results 04/18/20 04/18/20 04/19/20 Range/Units 22:49 22:49 00:35 WBC 11.8 H (4.0-10.0) 10^3/ uL RBC 4.70 (4.1-5.3) 10^6/u L Hgb 12.1 (11.5-15.3) g/dL Hct 37.9 (37.0-47.0) % MCV 80.6 L (81-99) fL MCH 25.7 L (28.0-34.0) pg MCHC 31.9 (30.0-36.0) g/dL RDW 16.6 H (12.1-15.1) % Plt Count 234 (130-400) 10^3/c mm MPV 12.5 H (7.4-10.4) fL Neut % (Auto) 63.9 % Lymph % (Auto) 28.0 % [place] % (Auto) 6.1 % Eos % (Auto) 1.2 % Baso % (Auto) 0.5 % Neut # (Auto) 7.52 (1.8-7.7) 10^3/u L Lymph # (Auto) 3.3 (0.8-4.8) 10^3/u L [place] # (Auto) 0.7 (0.2-0.9) 10^3/u L Eos # (Auto) 0.1 (0.0-0.8) 10^3/u L Baso # (Auto) 0.1 (0.0-0.1) 10^3/u L Nucleated RBC % (a uto) 0 % Nucleated RBCs # 0.0 /100WBC Sodium (136-145) mmol/L Potassium (3.5-5.1) mmol/L Chloride (98-107) mmol/L Carbon Dioxide (22-29) mmol/L Anion Gap (5-19) BUN (6-20) mg/dL Creatinine (0.5-0.9) mg/dL GFR Calculation (90-130) mL/min Glucose (65-115) mg/dL Calculated Osmolal ity (285-295) mOsm/k g Calcium (8.5-10.5) mg/dL Total Bilirubin (0.15-1.2) mg/dL AST (0-32) U/L ALT (0-33) U/L Alkaline Phosphata se (35-105) IU/L Total Protein (6.6-8.7) g/dL Albumin (3.5-5.2) g/dL Globulin (1.3-4.6) g/dL Urine Color Yellow (Yellow) Urine Appearance Hazy A (CLEAR) Urine pH 8 H (5-7) Ur Specific Gravit y 1.015 (1.005-1.030) Urine Protein Neg (Negative) Urine Glucose (UA) Norm (Normal) Urine Ketones Negative (Negative) Urine Blood 2+ H (Negative) Urine Nitrate Negative (Negative) Urine Bilirubin Neg (Negative) Prot Sulfosalicyli c Acd Negative (Negative) Urine Urobilinogen 1 H (Negative) mg/dL Ur Leukocyte Lizzeth ase Negative (Negative) Urine RBC 0-4 H (0-2) /hpf Urine WBC None (0-5) /hpf Ur Squamous Epith Cells 15-25 H (0-5) /hpf Amorphous Sediment Not Reportable Urine Bacteria Trace (NONE) /hpf Urine Mucus 4+ /hpf Urine HCG, Qual Negative (Negative) 04/19/20 Range/Units 00:35 WBC (4.0-10.0) 10^3/ uL RBC (4.1-5.3) 10^6/u L Hgb (11.5-15.3) g/dL Hct (37.0-47.0) % MCV (81-99) fL MCH (28.0-34.0) pg MCHC (30.0-36.0) g/dL RDW (12.1-15.1) % Plt Count (130-400) 10^3/c mm MPV (7.4-10.4) fL Neut % (Auto) % Lymph % (Auto) % [place] % (Auto) % Eos % (Auto) % Baso % (Auto) % Neut # (Auto) (1.8-7.7) 10^3/u L Lymph # (Auto) (0.8-4.8) 10^3/u L [place] # (Auto) (0.2-0.9) 10^3/u L Eos # (Auto) (0.0-0.8) 10^3/u L Baso # (Auto) (0.0-0.1) 10^3/u L Nucleated RBC % (a uto) % Nucleated RBCs # /100WBC Sodium 139 (136-145) mmol/L Potassium 4.1 (3.5-5.1) mmol/L Chloride 107 (98-107) mmol/L Carbon Dioxide 24 (22-29) mmol/L Anion Gap 12.1 (5-19) BUN 9 (6-20) mg/dL Creatinine 0.8 (0.5-0.9) mg/dL GFR Calculation 84.2 L (90-130) mL/min Glucose 84 (65-115) mg/dL Calculated Osmolal ity 286 (285-295) mOsm/k g Calcium 8.8 (8.5-10.5) mg/dL Total Bilirubin 0.2 (0.15-1.2) mg/dL AST 13 (0-32) U/L ALT 10 (0-33) U/L Alkaline Phosphata se 54 (35-105) IU/L Total Protein 6.8 (6.6-8.7) g/dL Albumin 4.2 (3.5-5.2) g/dL Globulin 2.6 (1.3-4.6) g/dL Urine Color (Yellow) Urine Appearance (CLEAR) Urine pH (5-7) Ur Specific Gravit y (1.005-1.030) Urine Protein (Negative) Urine Glucose (UA) (Normal) Urine Ketones (Negative) Urine Blood (Negative) Urine Nitrate (Negative) Urine Bilirubin (Negative) Prot Sulfosalicyli c Acd (Negative) Urine Urobilinogen (Negative) mg/dL Ur Leukocyte Lizzeth ase (Negative) Urine RBC (0-2) /hpf Urine WBC (0-5) /hpf Ur Squamous Epith Cells (0-5) /hpf Amorphous Sediment Urine Bacteria (NONE) /hpf Urine Mucus /hpf Urine HCG, Qual (Negative) Imaging Data: CT Abd/Pel: Radiologist's impression: [facility] [address] [address] [address] Scan Report Signed Patient: Mercedes Li #: [id number] : 1990Acct#:[id number] Age/Sex: 29 / FADM Date: 04/18/20 Loc: ERRoom/Bed: Attending Dr: Ordering Provider/Ordering MD: Rosario Logan Date of Service: 04/19/20 Procedure(s): CT kidney stone [id number] Accession Number(s): [id number] Report Number: [id number] PROCEDURE INFORMATION: Exam: CT Abdomen And Pelvis Without Contrast Exam date and time: 04/19/2020 12:31 AM Age: 29 years old Clinical indication: Abdominal pain; Prior surgery; Surgery type: Tubal; Patient HX: Bilateral flank pain; Additional info: Left flank pain TECHNIQUE: Imaging protocol: Computed tomography of the abdomen and pelvis without contrast. Radiation optimization: All CT scans at this facility use at least one of these dose optimization techniques: automated exposure control; mA and/or kV adjustment per patient size (includes targeted exams where dose is matched to clinical indication); or iterative reconstruction. COMPARISON: CT abdomen pelvis w con* [id number] 03/30/2020 5:22 PM RADIATION DOSE METRICS: Total DLP (mGy-cm): 503.59 FINDINGS: Liver: Normal. No mass. Gallbladder and bile ducts: Normal. No calcified stones. No ductal dilation. Pancreas: Normal. No ductal dilation. Spleen: Normal. No splenomegaly. Adrenal glands: Normal. No mass. Kidneys and ureters: Normal. No hydronephrosis. Stomach and bowel: Unremarkable. No obstruction. No mucosal thickening. Appendix: No evidence of appendicitis. Intraperitoneal space: Unremarkable. No free air. No significant fluid collection. Vasculature: Unremarkable. No abdominal aortic aneurysm. Lymph nodes: Unremarkable. No enlarged lymph nodes. Urinary bladder: Unremarkable as visualized. Reproductive: Unremarkable as visualized. Bones/joints: No acute fracture. Soft tissues: Bilateral breast implants are in place. CT/CT kidney stone [id number] IMPRESSION: No acute findings. Radiation Dose CTDIVOL = (mGy): DLP = 503.59 (mGy-cm) Dictated By:Bolivar Flower MD Signed By:Bolivar Flower MDSigned Date/Time:04/19/20126 DD/ 5 Discharge Plan Discharge Patient Disposition: Home Clinical Impression: Left flank pain Urinary tract infection Qualifiers: Urinary tract infection type: acute cystitis Hematuria presence: with hematuria Qualified Code(s): N30.01 - Acute cystitis with hematuria Condition: Stable Prescriptions: New Zofran 4 mg tablet 4 mg PO Q4H 5 Days Qty: 14 RF: 0 cefdinir 300 mg capsule 300 mg PO BID 7 Days Qty: 14 RF: 0 naproxen 500 mg tablet 500 mg PO BID PRN (Reason: pain) Qty: 30 RF: 0 No Action 28-800 mg-mcg Tablet 1 tab PO DAILY@22 RF: 0 [place] 5-325 mg tablet 1 tab PO Q6H PRN (Reason: pain) Qty: 14 RF: 0 ondansetron 4 mg tablet,disintegrating 4 mg PO Q6H PRN (Reason: nausea and vomiting) Qty: 14 RF: 0 Discharge Orders: Discharge ED (Routine); Ordered 04/19/20 Ordered By: Rosario Logan Referrals: Isaiah Arshad MD [Primary Care Provider] - Discharge Diet: Usual diet Discharge Activity: Resume usual activity Patient Instructions: Urinary Tract Infection in Women (ED), Acute Hematuria (ED), Dysuria (ED), Abdominal Pain (ED) Activity Restrictions/Additional Instructions: Take cefdinir until all gone, even if better Prescription of Zofran has been provided to help with nausea that may develop Prescription of naproxen has been prescribed to help with pain, take medication with food, avoid [id number] use of ibuprofen, Aleve or Advil as duplication of therapy can occur May take Tylenol as needed to supplement for pain relief. Return to the emergency department if you develop nausea vomiting or fever/increased abdominal/flank pain. Coding Level of Care Code ED Marker Maker for Bong Fweliazar Exam Comprehensive
[2020-04-19] MEDS: HYDROcodone-acetaminophen 5-325 mg Tablet 1 TAB PO (00:25)
[2020-04-19] MEDS: sodium chloride 0.9% 500 ML 999 ML IV (00:35)
--- NOTE | 2020-04-19 00:44 | PC.NURSE ---
report given to kiln charger
[2020-04-19 00:58] VITALS: PULSE 64; RESP 18; O2SAT 100
[2020-04-19 01:00] LABS: Basophils # 0.1 10^3/uL (0.0-0.1); Basophils % 0.5 %; Eosinophils # 0.1 10^3/uL (0.0-0.8); Eosinophils % 1.2 %; Hematocrit 37.9 % (37.0-47.0); Hemoglobin 12.1 g/dL (11.5-15.3); Lymphocytes # 3.3 10^3/uL (0.8-4.8); Mean Corpuscular HGB Conc 31.9 g/dL (30.0-36.0); Mean Corpuscular Hemoglobin 25.7 pg (28.0-34.0); Mean Corpuscular Volume 80.6 fL (81-99); Mean Platelet Volume 12.5 fL (7.4-10.4); Monocytes # 0.7 10^3/uL (0.2-0.9); Monocytes % 6.1 %; Neutrophils # 7.52 10^3/uL (1.8-7.7); Neutrophils % 63.9 %; Nucleated Red Blood Cells % 0 %; Platelet Count 234 10^3/cmm (130-400); Red Cell Distribution Width 16.6 % (12.1-15.1); White Blood Count 11.8 10^3/uL (4.0-10.0)
[2020-04-19 01:18] LABS: Alanine Aminotransferase 10 U/L (0-33); Albumin Level 4.2 g/dL (3.5-5.2); Alkaline Phosphatase 54 IU/L (35-105); Anion Gap 12.1 (5-19); Aspartate Amino Transferase 13 U/L (0-32); Blood Urea Nitrogen 9 mg/dL (6-20); Calcium 8.8 mg/dL (8.5-10.5); Carbon Dioxide 24 mmol/L (22-29); Chloride 107 mmol/L (98-107); Globulin 2.6 g/dL (1.3-4.6); Glomerular Filtration Rate 84.2 mL/min (90-130); Glucose 84 mg/dL (65-115); Osmolality Calculated 286 mOsm/kg (285-295); Potassium 4.1 mmol/L (3.5-5.1); Sodium 139 mmol/L (136-145); Total Bilirubin 0.2 mg/dL (0.15-1.2); Total Protein 6.8 g/dL (6.6-8.7)
[2020-04-19] MEDS: ondansetron 4 MG Tablet PO (02:18)
[2020-04-19] MEDS: cefdinir 300 MG CAPSULE PO (02:18)
[2020-04-19] MEDS: ketorolac 30 mg/mL INJ IVP (02:18)
[2020-04-19 02:23] VITALS: BP 115/48; PULSE 57; O2SAT 98
--- NOTE | 2020-04-20 08:48 | DCPLANNER ---
cooperative manager had message to schedule a follow up appointment for patient with Dr. Grider. cooperative manager called the office of Dr. Grider, spoke with Tammy, gave clinic patients information. cooperative manager was told that patients information would be printed and reviewed. Clinic will call patient with appointment information.
--- NOTE | 2020-04-26 13:11 | DCPLANNER ---
Patient has a follow up appointment scheduled for Saturday, May 02, [address] at 8:[address] Grider. Clinic will call patient with appointment information.
--- NOTE | 2020-06-09 14:37 | DCPLANNER ---
Patient had a follow up appointment for patient with Dr. Grider - patient did attend appointment.
== END 2020-04-19 02:25 | disposition home or self-care (01) ==
PROVIDERS: Emergency Provider Nurse Practitioner Family; PCP Family Medicine
DX: N30.01 Acute cystitis with hematuria (principal); Z87.440 Personal history of urinary (tract) infections; F17.210 Nicotine dependence, cigarettes, uncomplicated
CPT/HCPCS: 12345; 74176; 80053; 81001; 81025; 85025; 96374; 99283; 99291; J1885; J7040; Q0162

== ENCOUNTER → 2020-05-02 12:42 | Outpatient (BNVA) | payer MEDICAID, SELFPAY | PROVIDERS: PCP Family Medicine; Visit Provider Nurse Practitioner Family | DX: N39.0 Urinary tract infection, site not specified (principal) | CPT/HCPCS: 81003; 87086 ==

== ENCOUNTER 2020-07-07 16:32 | Emergency (ER) | payer MEDICAID, SELFPAY ==
[2020-07-07 16:36] VITALS: BP 125/83; PULSE 94; RESP 18; TEMP 36.6; O2SAT 100; BMI 24.0
[2020-07-07 16:41] VITALS: BP 124/76; RESP 18; O2SAT 100
--- NOTE | 2020-07-07 16:53 | W.ED.GENADLT ---
HPI - General Adult General: Chief complaint: General Medical Stated complaint: ATE FOOD WITH GLASS Time Seen by Provider: 07/07/20 16:43 History of Present Illness: HPI narrative: 29-year-old female presents emergency room complaining of having eaten a frozen burrito she is on a glass and she presents to the emergency room. The patient on her cell phone of a very minute fragment of glass that even with magnification is difficult to identify. She said she took a first bite of the Schneider and then on a second bite thought there was something in it so she spit it out she states she did cut her tongue although she has no bleeding now. Onset (ago): minute(s) Location: mouth Associated symptoms: Reports no associated symptoms; Deny chest pain, dyspnea, nausea or vomiting Review of Systems ENMT: Denies: throat pain, ear or mastoid pain, nasal discharge or nasal congestion Card: Denies: chest pain, edema, dyspnea on exertion or orthopnea Resp: Denies: dyspnea, productive cough or non-productive cough GI: Denies: abdominal pain, nausea, vomiting, hematemesis, coffee ground emesis, diarrhea, constipation, bloating, hematochezia or melena PFSH ED PFSH: Medical History Pyelonephritis Recurrent UTI Surgical History H/O tubal ligation History of breast augmentation Family History Mother Cancer ovarian Social History Smoking and tobacco status: current every day smoker Alcohol intake: never Marital status: Current occupational status: unemployed Female Reproductive History: Date of last menstrual period: 06/07/20 Physical Exam Const: COMMON NORMALS: no acute distress GENERAL APPEARANCE: cooperative and comfortable ORIENTATION/CONSCIOUSNESS: Yes awake, Yes oriented to person, Yes oriented to place and Yes oriented to time Extremity: COMMON NORMALS: normal to inspection, capillary refill normal, no clubbing, cyanosis or edema, no calf tenderness and no pedal edema Neuro: SENSORIUM/ORIENTATION: Yes oriented to person, Yes oriented to place and Yes oriented to time Course Vital Signs: Vital signs: Vital Signs Temperature 97.9 F 07/07/20 16:36 Pulse Rate 94 07/07/20 16:36 Respiratory Rate 18 07/07/20 16:41 Blood Pressure 124/76 07/07/20 16:41 Pulse Oximetry 100 07/07/20 16:41 MDM - General Adult MDM Narrative: Medical decision making narrative: Because of the patient at this point there really was not much we can do. She talked about such a small fragment would be impossible to find with an EGD and probably would have no significant benefit. CT is unlikely to identify a piece large enough to be noticeable on the scan. At this point recommend low-dose laxatives like a teaspoon or 2 of milk of magnesia every 6-8 hours to promote transition. If she has any abdominal pain vomits any blood or has any rectal bleeding return to the emergency room. Discharge Plan Discharge Patient Disposition: Home Clinical Impression: Swallowed foreign body Condition: Stable Prescriptions: No Action sulfamethoxazole-trimethoprim 800-160 mg tablet 1 tab PO BID Qty: 60 RF: 2 28-800 mg-mcg Tablet 1 tab PO DAILY@22 RF: 0 ondansetron 4 mg tablet,disintegrating 4 mg PO Q6H PRN (Reason: nausea and vomiting) Qty: 14 RF: 0 naproxen 500 mg tablet 500 mg PO BID PRN (Reason: pain) Qty: 30 RF: 0 Discharge Orders: Discharge ED (Routine); Ordered 07/07/20 Ordered By: Bennett Baumann Referrals: [facility], [Primary Care Provider] - Discharge Diet: Usual diet Discharge Activity: Increase activity as tolerated Patient Instructions: Opioid Safety Coding Level of Care Code ED Plate Mill Hand for Bong Fweliazar
[2020-07-07 17:09] VITALS: BP 105/68; PULSE 94; RESP 18; TEMP 36.6; O2SAT 98
== END 2020-07-07 17:12 | disposition home or self-care (01) ==
PROVIDERS: Emergency Provider Family Medicine
DX: T18.9XXA Foreign body of alimentary tract, part unspecified, initial encounter (principal); F17.210 Nicotine dependence, cigarettes, uncomplicated; X58.XXXA Exposure to other specified factors, initial encounter
CPT/HCPCS: 99281

== ENCOUNTER → 2020-07-11 14:59 | Outpatient (BNVA) | payer MEDICAID, SELFPAY | PROVIDERS: Visit Provider Nurse Practitioner Family | DX: N93.9 Abnormal uterine and vaginal bleeding, unspecified (principal); R53.83 Other fatigue | CPT/HCPCS: 80053; 81000; 82306; 82607; 84146; 84439; 84443; 84702; 85025; 87086; 87491; 87591; 87661 ==

== ENCOUNTER → 2020-07-13 13:27 | Outpatient (BNVA) | payer MEDICAID, SELFPAY | PROVIDERS: PCP Family Medicine; Visit Provider Psychiatry & Neurology Psychiatry | DX: F43.12 Post-traumatic stress disorder, chronic (principal); F41.1 Generalized anxiety disorder; F33.2 Major depressive disorder, recurrent severe without psychotic features; F12.20 Cannabis dependence, uncomplicated; F17.200 Nicotine dependence, unspecified, uncomplicated; F10.10 Alcohol abuse, uncomplicated; F11.21 Opioid dependence, in remission | CPT/HCPCS: 99204 ==

== ENCOUNTER → 2020-08-15 12:32 | Outpatient (BNVA) | payer MEDICAID, SELFPAY | PROVIDERS: PCP Nurse Practitioner Family; Visit Provider Psychiatry & Neurology Psychiatry | DX: F33.2 Major depressive disorder, recurrent severe without psychotic features (principal); F41.1 Generalized anxiety disorder; F11.21 Opioid dependence, in remission; F43.12 Post-traumatic stress disorder, chronic; F10.10 Alcohol abuse, uncomplicated; F17.200 Nicotine dependence, unspecified, uncomplicated; F12.20 Cannabis dependence, uncomplicated | CPT/HCPCS: 99214 ==

== ENCOUNTER 2020-08-24 09:58 | Outpatient (CLI) | payer MEDICAID, SELFPAY ==
--- NOTE | 2020-08-24 10:06 | US_ITS ---
WS: [id number] Complete ABDOMINAL ULTRASOUND HISTORY: NAUSEA W/vomiting, unspecified COMPARISON: None available. Liver: 10.6 cm in length. Liver is normal size and echogenicity with no mass or intrahepatic dilatati on. Gallbladder: Normally distended with no gallstones, wall thickening or pericholecystic fluid. Gallbladder wall thickness: 0.1 cm. Pancreas: Normal size and echogenicity. CBD: 0.3 cm. Right kidney: 9.3 cm x 5.2 cm x 4.4 cm. No mass, cortical thickening or hydronephrosis. Left kidney: 9.7 cm x 5.5 cm x 4.1 cm. No mass, cortical thickening or hydronephrosis. Spleen: Normal size and echogenicity. Abdominal aorta and IVC are within normal limits. No ascites. US/US abdomen complete* [id number] IMPRESSION: Normal complete abdomen ultrasound.
== END 2020-08-24 09:59 | disposition home or self-care (01) ==
LOC: US 09:59
PROVIDERS: PCP Nurse Practitioner Family; Visit Provider Nurse Practitioner Family
DX: R11.2 Nausea with vomiting, unspecified (principal)
CPT/HCPCS: 76700

== ENCOUNTER → 2020-09-12 08:31 | Outpatient (BNVA) | payer MEDICAID, SELFPAY | PROVIDERS: PCP Nurse Practitioner Family; Visit Provider Psychiatry & Neurology Psychiatry | DX: F33.2 Major depressive disorder, recurrent severe without psychotic features (principal); F11.21 Opioid dependence, in remission; F10.10 Alcohol abuse, uncomplicated; F17.200 Nicotine dependence, unspecified, uncomplicated; F12.20 Cannabis dependence, uncomplicated; F41.1 Generalized anxiety disorder; F43.12 Post-traumatic stress disorder, chronic | CPT/HCPCS: 99214 ==

== ENCOUNTER → 2020-11-06 12:14 | Outpatient (BNVA) | payer MEDICAID, SELFPAY | PROVIDERS: PCP Nurse Practitioner Family; Visit Provider Psychiatry & Neurology Psychiatry | DX: F33.2 Major depressive disorder, recurrent severe without psychotic features (principal); F11.21 Opioid dependence, in remission; F10.10 Alcohol abuse, uncomplicated; F17.200 Nicotine dependence, unspecified, uncomplicated; F12.20 Cannabis dependence, uncomplicated; F41.1 Generalized anxiety disorder; F43.12 Post-traumatic stress disorder, chronic | CPT/HCPCS: 99213 ==

== ENCOUNTER → 2020-12-11 11:21 | Outpatient (BNVA) | payer MEDICAID, SELFPAY | PROVIDERS: PCP Nurse Practitioner Family; Visit Provider Psychiatry & Neurology Psychiatry | DX: F41.1 Generalized anxiety disorder (principal); F33.2 Major depressive disorder, recurrent severe without psychotic features; F43.12 Post-traumatic stress disorder, chronic; F11.21 Opioid dependence, in remission; F17.200 Nicotine dependence, unspecified, uncomplicated; F12.20 Cannabis dependence, uncomplicated; F10.10 Alcohol abuse, uncomplicated | CPT/HCPCS: 99214 ==

== ENCOUNTER → 2021-01-24 07:33 | Outpatient (BNVA) | payer MEDICAID, SELFPAY | PROVIDERS: PCP Nurse Practitioner Family; Visit Provider Psychiatry & Neurology Psychiatry | DX: F33.2 Major depressive disorder, recurrent severe without psychotic features (principal); F41.1 Generalized anxiety disorder; F43.12 Post-traumatic stress disorder, chronic; F11.21 Opioid dependence, in remission; F10.10 Alcohol abuse, uncomplicated; F17.200 Nicotine dependence, unspecified, uncomplicated; F12.20 Cannabis dependence, uncomplicated; N39.0 Urinary tract infection, site not specified | CPT/HCPCS: 99213 ==

== ENCOUNTER → 2021-04-29 11:58 | Outpatient (BNVA) | payer MEDICAID, SELFPAY | PROVIDERS: PCP Nurse Practitioner Family; Visit Provider Nurse Practitioner | DX: S99.919A Unspecified injury of unspecified ankle, initial encounter (principal); X58.XXXA Exposure to other specified factors, initial encounter | CPT/HCPCS: 73610 ==

== ENCOUNTER → 2021-09-21 10:15 | Outpatient (BNVA) | payer MEDICAID, SELFPAY | PROVIDERS: PCP Nurse Practitioner Family; Visit Provider Psychiatry & Neurology Psychiatry | DX: F33.2 Major depressive disorder, recurrent severe without psychotic features (principal); F41.1 Generalized anxiety disorder; F17.200 Nicotine dependence, unspecified, uncomplicated; F11.21 Opioid dependence, in remission; F10.10 Alcohol abuse, uncomplicated; F12.20 Cannabis dependence, uncomplicated | CPT/HCPCS: 99214 ==

== ENCOUNTER 2021-09-21 17:36 | Emergency (ER) | payer MEDICAID, SELFPAY ==
--- NOTE | 2021-09-21 18:12 | XRR_ITS ---
PROCEDURE INFORMATION: Exam: XR Chest Exam date and time: 09/21/2021 6:47 PM Age: 31 years old Clinical indication: Other: Heartburn; Prior surgery; Surgery date: 6+ months; Surgery type: Breast implants; Additional info: Heart burn TECHNIQUE: Imaging protocol: XR of the chest. Views: 1 view. COMPARISON: CT Chest/Abdomen/Pelvis w IV* 01/11/2016 11:13 AM FINDINGS: Lungs: Unremarkable. No consolidation. Pleural spaces: Unremarkable. No pleural effusion. No pneumothorax. Heart/Mediastinum: Unremarkable. No cardiomegaly. Bones/joints: Unremarkable. XR/XR chest 1V portable [id number] IMPRESSION: No acute findings.
--- NOTE | 2021-09-21 18:12 | ECG_ITS ---
[facility] Test Date: 2021-09-21 Pat Name: Mercedes Li Department: Room: Gender: Female Slip Maker: : 1990 Requested By: Tisha Lund Order Number: [id number] Davi MD: Heidy Montilla M.D. Measurements Intervals [place] Rate: 57 P: 65 HI: 136 QRS: 92 QRSD: 80 T: 79 QT: 402 QTc: 392 Interpretive Statements SINUS BRADYCARDIA BORDERLINE RIGHT AXIS DEVIATION [QRS AXIS > 90] No previous ECG available for comparison Electronically Signed On 09-21-2021 22:07:46 CDT by Heidy Montilla M.D. [id number]
[2021-09-21 18:28] VITALS: BP 99/53; PULSE 68; RESP 13; TEMP 36.8; O2SAT 99; BMI 18.3
[2021-09-21 18:57] LABS: Basophils # 0.1 10^3/uL (0.0-0.1); Basophils % 0.6 %; Eosinophils # 0.1 10^3/uL (0.0-0.8); Eosinophils % 0.5 %; Hemoglobin 13.1 g/dL (11.5-15.3); Lymphocytes # 2.9 10^3/uL (0.8-4.8); Lymphocytes % 30.3 %; Mean Corpuscular HGB Conc 32.8 g/dL (30.0-36.0); Mean Corpuscular Hemoglobin 26.3 pg (28.0-34.0); Mean Corpuscular Volume 80.3 fl (81-99); Mean Platelet Volume 11.1 fL (7.4-10.4); Monocytes # 0.5 10^3/uL (0.2-0.9); Monocytes % 5.5 %; Neutrophils # 6.06 10^3/uL (1.8-7.7); Neutrophils % 62.8 %; Nucleated Red Blood Cells % 0 %; Platelet Count 243 10^3/cmm (130-400); Red Blood Count 4.98 10^6/uL (4.1-5.3); Red Cell Distribution Width 16.8 % (12.1-15.1); White Blood Count 9.7 10^3/uL (4.0-10.0)
--- NOTE | 2021-09-21 18:58 | ED_ITS ---
HPI - General Adult General: Chief complaint: Chest Pain Stated complaint: heartburn, arm numbness Time Seen by Provider: 09/21/21 18:36 History of Present Illness: CC: Chest Pain HPI: This is a [31]yo patient hx of SLE presenting to the ED complaining of acute sudden onset intermittent sharp chest pain x 2 daysWITHOUT radiation to the back or shoulders . No associated with shortness of breath, chest pain or dyspnea on exertion. Pain is not tearing in nature and does not radiate to the back. Pain not associated with vomiting or PO intake. Denies any recent sympathomimetic drug use. Patient denies any cough. Denies palpitations, dysphagia, diaphoresis, radiation of pain to bilateral arms, jaw. Denies F/N/V/D. Patient denies any recent immobility, surgery, unilateral leg swelling, or prior PE. Patient denies any orthopnea. Onset: 2 days ago Duration: ongoing for the last 2 days Location: home Severity: mild/moderate Associated symptoms: Reports chest pain; Deny dyspnea, nausea, rash, palpitations or vomiting Review of Systems Const: Denies: fever(s) or chills Eyes: Denies: change in vision ENMT: Denies: mouth pain Card: Reports: chest pain; Denies: palpitations Resp: Denies: dyspnea or non-productive cough GI: Denies: abdominal pain, nausea, vomiting or diarrhea : Denies: dysuria Musc: Denies: extremity pain Skin/Breast: Denies: rash or new lesions Neuro: Denies: weakness in extremities Psych: Reports: other (Normal mood) Reji/Lymph: Denies: easy bruising [facility] ED PFSH: Medical History (Updated 09/21/21 @ 19:01 by Tisha Lund MD) Lupus Psychiatric care Pyelonephritis Recurrent UTI Surgical History H/O tubal ligation History of breast augmentation Family History Mother Cancer ovarian Social History Smoking and tobacco status: current every day smoker cigarettes Packs smoked per day: 1 Years cigarettes smoked: 17 Quit status (tobacco): has tried quititng Number of times tried to quit tobacco: 10 Second hand smoke exposure: No Alcohol intake: current Alcohol intake frequency: holidays/special occasions only Marital status: Single Number of children: 3 Current occupational status: unemployed Female Reproductive History: Date of last menstrual period: 06/07/20 Physical Exam Const: COMMON NORMALS: alert HENMT: COMMON NORMALS: atraumatic HEAD & SCALP: atraumatic MOUTH: moist mucous membranes not abnormal Eye: COMMON NORMALS: EOMs intact bilaterally and conjunctivae normal CONJUNCTIVA: Yes conjunctivae normal Neck/C-Spine: COMMON NORMALS: full ROM and supple Resp: COMMON NORMALS: normal respiratory effort and clear to auscultation bilaterally AUSCULTATION: clear to auscultation bilaterally Cardio: COMMON NORMALS: regular rate RATE: regular rate OTHER: 2+ radial pulses b/l GI: COMMON NORMALS: Soft to palpation and non-tender PALPATION: Yes Soft to palpation Extremity: COMMON NORMALS: full ROM Neuro: SENSORIUM/ORIENTATION: Yes alert MOTOR EXAM: No Abnormal motor strength present and Other motor observations present (no focal motor deficits) Psych: COMMON NORMALS: speech normal SPEECH: Yes normal speech MOOD & AFFECT: Yes euthymic mood Course Vital Signs: Vital signs: Vital Signs Temperature 98.3 F 09/21/21 18:28 Pulse Rate 68 09/21/21 18:28 Respiratory Rate 13 09/21/21 18:28 Blood Pressure 99/53 09/21/21 18:28 Pulse Oximetry 99 09/21/21 18:28 MDM - General Adult Medical Decision Making [31]yo patient w/ hx of SLE presenting to the ED with evaluation of new onset sharp chest pain x 2 days. HDS, pulse 2+ radially bilaterally, no signs of fluid overload, AAOx3, neuro exam intact. Given History and Exam today I have no suspicion for ACS, Pneumothorax, Pneumonia, Pulmonary Embolus, Tamponade, Aortic Dissection or other emergent problems as a cause for this presentation. Workup: ECG, CXR, CBC, BMP, Troponin Interventions: GI cocktail Findings: ECG: No overt evidence of STEMI, hyperacute T waves, localizable STD or T wave inversions. No evidence of Brugada?s sign, delta wave, epsilon wave, significantly prolonged QTc, or malignant arrhythmia. No Q waves. Other Labs unremarkable for emergent problems. CXR: Without PTX, PNA, or widened mediastinum Last Stress Test: never Last Heart Catheterization: never HEART Score: 0 PERC: Negative [7:45pm] On reassessment, the patient is HDS, no complaints of persistent chest pain in the ED after evaluation. ECG is non-ischemic. Workup today is unremarkable. Doubt ACS/PE or other emergent causes of chest pain. Doubt ACS/PE or other emergent causes of chest pain. No suspicion for aortic dissection given no widened mediastinum, 2+ upper extremity pulses, or tearing pain. No suspicion for PE given no pleuritic chest pain, recent immobilization or surgery hemoptysis, or other VTE risk factors. EKG is non-ischemic. XR normal. Rx tylenol PRN abd pain, maalox/pepcid PRN dyspepsia, and zofran PRN nausea/vomiting Disposition: Discharge. Strict return precautions discussed with the patient with full understanding. Advised patient to follow up promptly with a primary care provider in 24-48 hrs if the patient has persistent symptoms. Given return instructions for any crushing/tearing chest pain, focal weakness, syncope or any new or concerning issues. Lab Data : 09/21/21 18:54 09/21/21 18:54 Radiology Impressions Chest X-Ray 09/21/21 18:12 IMPRESSION: No acute findings. Laboratory Results WBC 9.7 10^3/uL (4.0-10.0) 09/21/21 18:54 RBC 4.98 10^6/uL (4.1-5.3) 09/21/21 18:54 Hgb 13.1 g/dL (11.5-15.3) 09/21/21 18:54 Hct 40.0 % (37.0-47.0) 09/21/21 18:54 MCV 80.3 fl (81-99) L 09/21/21 18:54 MCH 26.3 pg (28.0-34.0) L 09/21/21 18:54 MCHC 32.8 g/dL (30.0-36.0) 09/21/21 18:54 RDW 16.8 % (12.1-15.1) H 09/21/21 18:54 Plt Count 243 10^3/cmm (130-400) 09/21/21 18:54 MPV 11.1 fL (7.4-10.4) H 09/21/21 18:54 Neut % (Auto) 62.8 % 09/21/21 18:54 Lymph % (Auto) 30.3 % 09/21/21 18:54 [place] % (Auto) 5.5 % 09/21/21 18:54 Eos % (Auto) 0.5 % 09/21/21 18:54 Baso % (Auto) 0.6 % 09/21/21 18:54 Neut # (Auto) 6.06 10^3/uL (1.8-7.7) 09/21/21 18:54 Lymph # (Auto) 2.9 10^3/uL (0.8-4.8) 09/21/21 18:54 [place] # (Auto) 0.5 10^3/uL (0.2-0.9) 09/21/21 18:54 Eos # (Auto) 0.1 10^3/uL (0.0-0.8) 09/21/21 18:54 Baso # (Auto) 0.1 10^3/uL (0.0-0.1) 09/21/21 18:54 Nucleated RBC % (auto) 0 % 09/21/21 18:54 Nucleated RBCs # 0.0 /100WBC 09/21/21 18:54 Sodium 141 mmol/L (136-145) 09/21/21 18:54 Potassium 3.5 mmol/L (3.5-5.1) 09/21/21 18:54 Chloride 103 mmol/L (98-107) 09/21/21 18:54 Carbon Dioxide 28 mmol/L (22-29) 09/21/21 18:54 Anion Gap 13.5 (5-19) 09/21/21 18:54 BUN 7 mg/dL (6-20) 09/21/21 18:54 Creatinine 0.6 mg/dL (0.5-0.9) 09/21/21 18:54 GFR Calculation 115.9 mL/min (90-130) 09/21/21 18:54 Glucose 85 mg/dL (65-115) 09/21/21 18:54 Calculated Osmolality 289 mOsm/kg (285-295) 09/21/21 18:54 Calcium 9.0 mg/dL (8.5-10.5) 09/21/21 18:54 Total Bilirubin 0.2 mg/dL (0.15-1.2) 09/21/21 18:54 AST 16 U/L (0-32) 09/21/21 18:54 ALT 14 U/L (0-33) 09/21/21 18:54 Alkaline Phosphatase 52 IU/L (35-105) 09/21/21 18:54 Troponin T Baseline 6 ng/L (0-10) 09/21/21 18:54 Total Protein 7.2 g/dL (6.6-8.7) 09/21/21 18:54 Albumin 4.4 g/dL (3.5-5.2) 09/21/21 18:54 Globulin 2.8 g/dL (1.3-4.6) 09/21/21 18:54 Lipase 30 U/L (13-60) 09/21/21 18:54 Imaging Data Other Imaging: Radiologist's impression: [place] [address] XRay Report Signed Patient: Mercedes Li Unit #: [id number] : 1990 Age/Sex: 31 / F ADM Date: 09/21/21 Loc: ER Room/Bed: Attending Dr: Ordering Provider/Ordering MD: Tisha Lund MD Date of Service: 09/21/21 Procedure(s): XR chest 1V portable [id number] Accession Number(s): [id number] Report Number: [id number] PROCEDURE INFORMATION: Exam: XR Chest Exam date and time: 09/21/2021 6:47 PM Age: 31 years old Clinical indication: Other: Heartburn; Prior surgery; Surgery date: 6+ months; Surgery type: Breast implants; Additional info: Heart burn TECHNIQUE: Imaging protocol: XR of the chest. Views: 1 view. COMPARISON: CT Chest/Abdomen/Pelvis w IV* 01/11/2016 11:13 AM FINDINGS: Lungs: Unremarkable. No consolidation. Pleural spaces: Unremarkable. No pleural effusion. No pneumothorax. Heart/Mediastinum: Unremarkable. No cardiomegaly. Bones/joints: Unremarkable. XR/XR chest 1V portable [id number] IMPRESSION: No acute findings. ? Dictated By: Darin Llamas DO Signed By: Darin Llamas DO Signed Date/Time: 09/21/211912 DD/ 46 Discharge Plan Discharge Patient Disposition: Home Clinical Impression: Chest pain, Heart burn Condition: Stable Prescriptions: New acetaminophen 500 mg tablet 500 mg PO Q6H PRN (Reason: pain) 5 Days Qty: 20 0RF Pepcid 20 mg tablet 20 mg PO BID PRN (Reason: abdominal pain) 10 Days Qty: 20 0RF Maalox Advanced 1,000-60 mg tablet,chewable 1 tab PO TID PRN (Reason: abdominal pain) 7 Days Qty: 21 0RF No Action trazodone 50 mg tablet 100 mg PO .HS PRN (Reason: insomnia) Qty: 60 2RF fluoxetine [Prozac] 20 mg capsule 20 mg PO DAILY Qty: 30 2RF buspirone 5 mg tablet 5 mg PO TID Qty: 90 2RF cholecalciferol (vitamin D3) 50 mcg (2,000 unit) tablet 50 mcg PO DAILY Qty: 90 4RF Discharge Orders: Discharge ED (Routine); Ordered 09/21/21 Ordered By: Tisha Lund Referrals: Gwen Barr FNP [Primary Care Provider] - Discharge Diet: Advance as tolerated Discharge Activity: Increase activity as tolerated Patient Instructions: Chest Pain (ED) Activity Restrictions/Additional Instructions: Come back to the emergency room if your chest pain worsens, have any fever or chills, worsening shortness of breath, worsening exertional lightheadedness, or any new or concerning complaints. Coding Level of Care Code ED Spooler Operator for Bong Fwd Exam Comprehensive
[2021-09-21 19:16] LABS: Alanine Aminotransferase 14 U/L (0-33); Albumin Level 4.4 g/dL (3.5-5.2); Alkaline Phosphatase 52 IU/L (35-105); Anion Gap 13.5 (5-19); Aspartate Amino Transferase 16 U/L (0-32); Blood Urea Nitrogen 7 mg/dL (6-20); Carbon Dioxide 28 mmol/L (22-29); Chloride 103 mmol/L (98-107); Globulin 2.8 g/dL (1.3-4.6); Glomerular Filtration Rate 115.9 mL/min (90-130); Glucose 85 mg/dL (65-115); Lipase 30 U/L (13-60); Osmolality Calculated 289 mOsm/kg (285-295); Potassium 3.5 mmol/L (3.5-5.1); Sodium 141 mmol/L (136-145); Total Bilirubin 0.2 mg/dL (0.15-1.2); Total Protein 7.2 g/dL (6.6-8.7)
[2021-09-21 19:17] LABS: Troponin(5th) Baseline 6 ng/L (0-10)
[2021-09-21] MEDS: lidocaine 2% viscous 15 ML, aluminum-mag hydrox-simethicon 30 ML, sucralfate oral liq 1 GM PO (19:24)
[2021-09-21 19:40] VITALS: PULSE 84; RESP 16; O2SAT 96
== END 2021-09-21 19:40 | disposition home or self-care (01) ==
PROVIDERS: Emergency Provider Emergency Medicine; PCP Nurse Practitioner Family
DX: R07.9 Chest pain, unspecified (principal); R12 Heartburn
CPT/HCPCS: 71045; 80053; 83690; 84484; 85025; 93005; 99284

== ENCOUNTER 2022-12-29 09:52 | Emergency (ER) | payer MEDICAID, SELFPAY ==
[2022-12-29 10:17] VITALS: BP 110/72; PULSE 66; RESP 16; TEMP 36.4; O2SAT 99; BMI 19.3
[2022-12-29 10:26] VITALS: BP 110/72; PULSE 74; RESP 15; O2SAT 99
--- NOTE | 2022-12-29 11:20 | CTR_ITS ---
PROCEDURE INFORMATION: Exam: CT Abdomen And Pelvis With Contrast Exam date and time: 12/29/2022 12:28 PM Age: 32 years old Clinical indication: Abdominal pain; Prior surgery; Surgery date: 6+ months; Surgery type: Tubal; Additional info: Abd and flank pain, decreased uop TECHNIQUE: Imaging protocol: Computed tomography of the abdomen and pelvis with contrast. Axial, coronal and sagittal reformatted images were created and reviewed. Radiation optimization: All CT scans at this facility use at least one of these dose optimization techniques: automated exposure control; mA and/or kV adjustment per patient size (includes targeted exams where dose is matched to clinical indication); or iterative reconstruction. Contrast material: OMNI 350; Contrast volume: 75 ml; Contrast route: INTRAVENOUS (IV); REPORTING DATA: Count of CT and Cardiac NM exams in prior 12 months: This patient has received 0 known CTs and 0 known cardiac nuclear medicine studies in the 12 months prior to the current study. COMPARISON: CT kidney stone [id number] 04/19/2020 12:36 AM RADIATION DOSE METRICS: Total DLP (mGy-cm): 299.94 FINDINGS: Liver: Scattered low-density hepatic lesions with subtle associated peripheral nodular enhancement, measuring up to 1.1 cm, compatible with benign hemangiomas. Gallbladder and bile ducts: No radiodense gallstones. No biliary ductal dilatation. Pancreas: Unremarkable. Spleen: Unremarkable. Adrenal glands: Normal. No mass. Kidneys and ureters: No mass. No radiodense calculi. No hydronephrosis. Stomach and bowel: No bowel wall thickening. No obstruction. No pneumatosis. Appendix: Normal. Intraperitoneal space: Trace nonspecific free pelvic fluid, likely physiologic. No organized fluid collection. No free air. Vasculature: Unremarkable. No aneurysm. Lymph nodes: No pathologically enlarged lymph nodes. Urinary bladder: Mild circumferential urinary bladder wall thickening, likely secondary to underdistention. Reproductive: Bilateral ovarian follicles. Bones/joints: No acute osseous abnormality. Soft tissues: Breast implants in place. CT/CT abdomen pelvis w con* [id number]: 1[address] No [address] evidence of acute intra-abdominal or pelvic pathology. 2. Additional findings, as above.
[2022-12-29 11:46] LABS: Basophils # 0.1 10^3/uL (0.0-0.1); Basophils % 0.6 %; Eosinophils % 0.4 %; Hematocrit 41.6 % (36-47); Lymphocytes % 22.3 %; Mean Corpuscular HGB Conc 32.9 g/dL (30-55); Mean Corpuscular Hemoglobin 27.7 pg (27-33); Mean Corpuscular Volume 84.2 fl (85-98); Mean Platelet Volume 12.3 fL (7.4-10.4); Monocytes # 0.5 10^3/uL (0.2-0.9); Monocytes % 5.1 %; Neutrophils # 6.35 10^3/uL (1.8-7.7); Neutrophils % 71.3 %; Nucleated Red Blood Cells % 0 %; Platelet Count 239 10^3/cmm (157-399); Red Blood Count 4.94 10^6/uL (3.85-5.65); Red Cell Distribution Width 15.2 % (12.1-15.1); White Blood Count 8.91 10^3/uL (3.29-11.43)
[2022-12-29 11:54] LABS: Add Urine Microscopic? NO; Charge for UA Resulting for Rev
[2022-12-29 11:55] LABS: HCG Qualitative Urine. Negative (Negative)
[2022-12-29 11:58] LABS: Bilirubin Urine Neg (Negative); Blood Urine Neg (Negative); Glucose Urine UA Norm (Normal); Ketones Urine Negative (Negative); Leukocyte Esterase Urine Negative (Negative); Nitrate Urine Negative (Negative); Protein Urine Neg (Negative); Urine Appearance Clear (CLEAR); Urine Color Yellow (Yellow); Urobilinogen Urine Norm (Negative); pH Urine 6.5 (5-7)
[2022-12-29 12:02] LABS: Alanine Aminotransferase 7 U/L (0-33); Albumin Level 4.6 g/dL (3.5-5.2); Alkaline Phosphatase 52 U/L (35-105); Aspartate Amino Transferase 11 U/L (0-32); Blood Urea Nitrogen 9 mg/dL (6-20); Calcium 9.2 mg/dL (8.5-10.5); Carbon Dioxide 26 mmol/L (22-29); Chloride 103 mmol/L (98-107); Creatinine Clr Calc Pharmacy 91.6763; Globulin 2.6 g/dL (1.3-4.6); Glomerular Filtration Rate 115.1 mL/min (90-130); Glucose 99 mg/dL (65-115); Osmolality Calculated 283 mOsm/kg (285-295); Sodium 137 mmol/L (136-145); Total Bilirubin 0.2 mg/dL (0.15-1.2); Total Protein 7.2 g/dL (6.6-8.7)
[2022-12-29 12:10] LABS: Anion Gap 12.1 (5-19); Potassium 4.1 mmol/L (3.5-5.1)
[2022-12-29] MEDS: ondansetron 2 mg/ML SDV 2 mL 4 MG IVP (12:19)
[2022-12-29] MEDS: ketorolac 30 mg/mL INJ IVP (12:19)
[2022-12-29] MEDS: sodium chloride 0.9% 1,000 ML 999 ML IV (12:19)
[2022-12-29] MEDS: iohexol 350 mg/mL 500 mL Btl (per mL) IV (12:31)
[2022-12-29 12:55] VITALS: BP 92/54; PULSE 61; RESP 15; O2SAT 100
--- NOTE | 2022-12-29 13:27 | W.ED.FEMALGU ---
HPI - Female Genitourinary General: Chief complaint: Urogenital-Female Stated complaint: urinary Time Seen by Provider: 12/29/22 10:26 History of Present Illness: Patient is a 32-year-old female that presents to the emergency department with bladder pain, back pain, dysuria symptoms. Patient states she has not been able to urinate since yesterday. Patient denies fever chills chest pain shortness of breath cough congestion nausea vomiting or diarrhea. Last menstrual cycle was within the last month Patient reports chronic UTI and kidney issues. [facility] ED PFSH: Medical History (Updated 12/29/22 @ 13:38 by MICHAEL Weiss) Lupus Psychiatric care Pyelonephritis Recurrent UTI Surgical History H/O tubal ligation History of breast augmentation Family History Mother Cancer ovarian Social History (Updated 02/27/22 @ 13:27 by Eugenio Gallardo LPN) Smoking and tobacco status: current every day smoker cigarettes Packs smoked per day: 0.5 Years cigarettes smoked: 17 Quit status (tobacco): has tried quititng Number of times tried to quit tobacco: 10 Second hand smoke exposure: No Smoking risk assessment/counseling performed?: No Alcohol intake: never Desire information about alcohol rehabilitation?: No Counseling given: No Substance/Drug Use: current Substance/Drug use frequency: daily Other substance/drug use details: Pain. Desire information about substance/drug rehabilitation?: No Counseling given: No Marital status: Single Number of children: 3 Current occupational status: unemployed Physical Exam Const: COMMON NORMALS: no acute distress, patient oriented x3 and alert GENERAL APPEARANCE: cooperative ORIENTATION/CONSCIOUSNESS: Yes awake, Yes oriented to person, Yes oriented to place and Yes oriented to time HENMT: COMMON NORMALS: normocephalic and atraumatic HEAD & SCALP: normocephalic and atraumatic FACE & SINUS: normal facial exam MOUTH: Normal oral and palatal mucosa present THROAT: posterior oropharynx normal Eye: COMMON NORMALS: Equal, round and reactive pupils present, EOMs intact bilaterally, conjunctivae normal and no scleral icterus GENERAL EYE: appearance normal, both eyes and all related structures ALIGNMENT: Yes alignment normal PERIORBITAL: periorbital findings normal CONJUNCTIVA: Yes conjunctivae normal PUPIL: Yes Equal, round and reactive pupils present Neck/C-Spine: COMMON NORMALS: full ROM GENERAL: Yes normal visual inspection Lymph: LYMPHATIC: no lymphadenopathy noted Chest: COMMONS NORMALS: normal inspection of the chest Breast/axilla inspection: Yes no chest deformity, asymmetry, normal contours, no nodules, masses, tenderness Resp: COMMON NORMALS: normal respiratory effort, No retractions, No use of accessory muscles and clear to auscultation bilaterally EFFORT & INSPECTION: Yes able to speak in complete sentences and Yes symmetric chest movement AUSCULTATION: clear to auscultation bilaterally Cardio: COMMON NORMALS: regular rate, regular rhythm and Peripheral pulses 2+ throughout RATE: regular rate RHYTHM: regular rhythm PERIPHERAL PULSES: Peripheral pulses 2+ throughout GI: COMMON NORMALS: Normal to inspection, nondistended, normoactive bowel sounds present, Soft to palpation, non-tender and No hepatosplenomegaly present INSPECTION: Yes normal to inspection AUSCULTATION: Yes normoactive bowel sounds PALPATION: Yes Soft to palpation and Yes No hepatosplenomegaly present RECTAL EXAM: deferred Extremity: COMMON NORMALS: normal to inspection GENERAL: Yes normal exam except as noted Neuro: COMMON NORMALS: patient oriented x3 SENSORIUM/ORIENTATION: Yes alert, Yes oriented to person, Yes oriented to place and Yes oriented to time CRANIAL NERVES: Yes CN normal except as noted Psych: COMMON NORMALS: mental status grossly normal, Normal thought process present, cooperative, activity/motor behavior normal, denies homicidal ideation and denies suicidal ideation THOUGHT PROCESS: Normal thought process present Skin: COMMON NORMALS: no rashes or lesions noted, no wounds and turgor normal GENERAL SKIN EXAM: no rashes or lesions noted and turgor normal Course Vital Signs: Vital signs: Vital Signs Temperature 97.6 F 12/29/22 10:17 Pulse Rate 61 12/29/22 12:55 Respiratory Rate 15 12/29/22 12:55 Blood Pressure 92/54 12/29/22 12:55 Pulse Oximetry 100 12/29/22 12:55 Oxygen Delivery Me thod Room Air 12/29/22 12:55 MDM - Female Medical Decision Making Patient was evaluated in the emergency department for complaints of low abdominal pain, dysuria, flank pain. Patient has a differential diagnosis that includes TIANNA, chronic kidney disease, acute kidney disease, hydronephrosis, kidney stones, pyelonephritis, UTI, interstitial cystitis, Patient underwent diagnostic evaluation that included a CBC, CMP, urinalysis and CT of the abdomen pelvis. Laboratory studies revealed no acute findings. There is no evidence of UTI. Patient does have bladder wall thickening on CT imaging suggestive of interstitial cystitis since his urine specimen is clear. Jeanne treat the patient with NSAIDs and Pyridium. Patient did receive a liter of fluid and had good response from the 1 dose of Toradol. Patient did not had a long discussion about this and treatment for his interstitial cystitis which consist largely of lifestyle changes. Patient is agreeable with plan and will follow-up with primary care doctor FINDINGS: Liver: Scattered low-density hepatic lesions with subtle associated peripheral nodular enhancement, measuring up to 1.1 cm, compatible with benign hemangiomas. Gallbladder and bile ducts: No radiodense gallstones. No biliary ductal dilatation. Pancreas: Unremarkable. Spleen: Unremarkable. Adrenal glands: Normal. No mass. Kidneys and ureters: No mass. No radiodense calculi. No hydronephrosis. Stomach and bowel: No bowel wall thickening. No obstruction. No pneumatosis. Appendix: Normal. Intraperitoneal space: Trace nonspecific free pelvic fluid, likely physiologic. No organized fluid collection. No free air. Vasculature: Unremarkable. No aneurysm. Lymph nodes: No pathologically enlarged lymph nodes. Urinary bladder: Mild circumferential urinary bladder wall thickening, likely secondary to underdistention. Reproductive: Bilateral ovarian follicles. Bones/joints: No acute osseous abnormality. Soft tissues: Breast implants in place. Lab Data 12/29/22 10:27 12/29/22 10:27 Radiology Impressions Abdomen/Pelvis CT 12/29/22 11:[address]: [address] evidence of acute intra-abdominal or pelvic pathology. 2. Additional findings, as above. Laboratory Results WBC 8.91 10^3/uL (3.29-11.43) 12/29/22 10:27 RBC 4.94 10^6/uL (3.85-5.65) 12/29/22 10:27 Hgb 13.70 g/dL (11.27-16.99) 12/29/22 10:27 Hct 41.6 % (36-47) 12/29/22 10:27 MCV 84.2 fl (85-98) L 12/29/22 10:27 MCH 27.7 pg (27-33) 12/29/22 10:27 MCHC 32.9 g/dL (30-55) 12/29/22 10:27 RDW 15.2 % (12.1-15.1) H 12/29/22 10:27 Plt Count 239 10^3/cmm (157-399) 12/29/22 10:27 MPV 12.3 fL (7.4-10.4) H 12/29/22 10:27 Neut % (Auto) 71.3 % 12/29/22 10:27 Lymph % (Auto) 22.3 % 12/29/22 10:27 Kimball % (Auto) 5.1 % 12/29/22 10:27 Eos % (Auto) 0.4 % 12/29/22 10:27 Baso % (Auto) 0.6 % 12/29/22 10:27 Neut # (Auto) 6.35 10^3/uL (1.8-7.7) 12/29/22 10:27 Lymph # (Auto) 2.0 10^3/uL (0.8-4.8) 12/29/22 10:27 Kimball # (Auto) 0.5 10^3/uL (0.2-0.9) 12/29/22 10:27 Eos # (Auto) 0.0 10^3/uL (0.0-0.8) 12/29/22 10:27 Baso # (Auto) 0.1 10^3/uL (0.0-0.1) 12/29/22 10:27 Nucleated RBC % (auto) 0 % 12/29/22 10:27 Nucleated RBCs # 0.0 /100WBC 12/29/22 10:27 Sodium 137 mmol/L (136-145) 12/29/22 10:27 Potassium 4.1 mmol/L (3.5-5.1) 12/29/22 10:27 Chloride 103 mmol/L (98-107) 12/29/22 10:27 Carbon Dioxide 26 mmol/L (22-29) 12/29/22 10:27 Anion Gap 12.1 (5-19) 12/29/22 10:27 BUN 9 mg/dL (6-20) 12/29/22 10:27 Creatinine 0.6 mg/dL (0.5-0.9) 12/29/22 10:27 GFR Calculation 115.1 mL/min (90-130) 12/29/22 10:27 Glucose 99 mg/dL (65-115) 12/29/22 10:27 Calculated Osmolality 283 mOsm/kg (285-295) L 12/29/22 10:27 Calcium 9.2 mg/dL (8.5-10.5) 12/29/22 10:27 Total Bilirubin 0.2 mg/dL (0.15-1.2) 12/29/22 10:27 AST 11 U/L (0-32) 12/29/22 10:27 ALT 7 U/L (0-33) 12/29/22 10:27 Alkaline Phosphatase 52 U/L (35-105) 12/29/22 10:27 Total Protein 7.2 g/dL (6.6-8.7) 12/29/22 10:27 Albumin 4.6 g/dL (3.5-5.2) 12/29/22 10:27 Globulin 2.6 g/dL (1.3-4.6) 12/29/22 10:27 HCG, Qual Negative (Negative) 12/29/22 10:27 Urine Color Yellow (Yellow) 12/29/22 11:48 Urine Appearance Clear (CLEAR) 12/29/22 11:48 Urine pH 6.5 (5-7) 12/29/22 11:48 Ur Specific [place] 1.010 (1.005-1.030) 12/29/22 11:48 Urine Protein Neg (Negative) 12/29/22 11:48 Urine Glucose (UA) Norm (Normal) 12/29/22 11:48 Urine Ketones Negative (Negative) 12/29/22 11:48 Urine Blood Neg (Negative) 12/29/22 11:48 Urine Nitrate Negative (Negative) 12/29/22 11:48 Urine Bilirubin Neg (Negative) 12/29/22 11:48 Urine Urobilinogen Norm mg/dL (Negative) 12/29/22 11:48 Ur Leukocyte Esterase Negative (Negative) 12/29/22 11:48 Discharge Plan Discharge Patient Disposition: Home Clinical Impression: Cystitis, interstitial Condition: Stable Prescriptions: New ketorolac 10 mg tablet 10 mg PO TID 5 Days Qty: 15 0RF phenazopyridine [Pyridium] 100 mg tablet 100 mg PO Q8H PRN (Reason: Bladder spasm) Qty: 14 0RF ondansetron HCl 4 mg tablet 4 mg PO Q8H PRN (Reason: nausea and vomiting) 4 Days Qty: 20 0RF No Action buspirone 10 mg tablet 10 mg PO TID Qty: 90 2RF fluoxetine [Prozac] 40 mg capsule 40 mg PO DAILY Qty: 30 2RF hydroxyzine HCl 50 mg tablet 50 mg PO QID PRN (Reason: anxiety/insomnia) Qty: 120 2RF prazosin 5 mg capsule 5 mg PO .HS Qty: 30 2RF propranolol 20 mg tablet 20 mg PO BID PRN (Reason: anxiety) Qty: 60 2RF varenicline 1 mg tablet 1 mg PO BID Qty: 56 2RF mirtazapine 15 mg tablet 15 mg PO .HS Qty: 30 2RF Discharge Orders: Discharge ED (Routine); Ordered 12/29/22 Ordered By: Roxann Steven Referrals: Gwen Barr FNP [Primary Care Provider] - Discharge Diet: Advance as tolerated Discharge Activity: Resume usual activity Patient Instructions: Interstitial Cystitis (ED), Pain Management Activity Restrictions/Additional Instructions: Please follow-up with primary care doctor to further discuss management . How do you fix interstitial cystitis/bladder pain syndrome? You can?t fix or cure IC/BPS. However, there are many ways to treat it. The goal of IC/BPS treatments is to relieve your symptoms. Your healthcare provider will work with you to decide the most appropriate treatment. In some cases, they may even combine treatments. Healthcare providers can?t predict how your body will respond to each treatment. You?ll go through a process of trial and error with various treatments to see how your body responds. Your symptoms may go away or they may become more severe. Even if your symptoms disappear, they may return later. Interstitial cystitis/bladder pain syndrome treatments may include the following: Diet changes Some people who have IC/BPS report that certain foods and drinks worsen their symptoms (triggers). Keep a diary of what and how much you eat and drink each day. Noting what you eat and drink before the onset of symptoms and/or a flare-up can help you learn what foods and drinks to avoid. If you notice that acidic foods or drinks ? citrus fruits, peppers, carbonated beverages, tomatoes ? cause flare-ups, your provider may recommend taking an?[email or web address]-yrbqbaj?with meals. Antacids reduce the amount of acid that gets into your pee. Common foods and drinks that may cause IC/BPS symptoms include: Alcohol. Artificial sweeteners. Caffeine. Carbonated beverages. Chocolate. Tomatoes. Fruit juices. Your provider may also refer you to a dietitian to help you create the best diet to reduce symptoms. Physical activity Exercise and physical activity may help relieve your IC/BPS symptoms. Examples of exercises include: Walking. Bicycling. Gentle stretching or yoga. Reducing stress If you have IC/BPS,?[email or web address]-hzlfgt?may trigger flare-ups. Learning to recognize and?manage [email or web address]?may help alleviate your symptoms. You may need to talk to a mental health professional to help with this portion of treatment. Physical therapy Your pelvic muscles hold your bladder in place and help control when you pee. Exercising, stretching and especially relaxing your pelvic muscles may help reduce IC/BPS symptoms. Your provider can help ensure you?re performing these exercises correctly. Many people work with a pelvic floor physical therapist to make sure they?re relaxing their pelvic floor muscles enough. 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
[2022-12-29 13:58] VITALS: BP 92/54; PULSE 55; RESP 16; O2SAT 99
== END 2022-12-29 13:59 | disposition home or self-care (01) ==
PROVIDERS: Emergency Provider Nurse Practitioner; PCP Nurse Practitioner Family
DX: N30.10 Interstitial cystitis (chronic) without hematuria (principal); F17.210 Nicotine dependence, cigarettes, uncomplicated; Z87.440 Personal history of urinary (tract) infections; M32.9 Systemic lupus erythematosus, unspecified
CPT/HCPCS: 51798; 74177; 80053; 81003; 81025; 85025; 96374; 96375; 99285; J1885; J2405; J7030; Q9967

== ENCOUNTER → 2023-01-13 10:55 | Outpatient (BNVA) | payer MEDICAID, SELFPAY | PROVIDERS: PCP Nurse Practitioner Family; Visit Provider Nurse Practitioner Family | DX: N39.0 Urinary tract infection, site not specified (principal); R33.9 Retention of urine, unspecified | CPT/HCPCS: 81000 ==

== ENCOUNTER 2023-06-18 13:49 | Outpatient (CLI) | payer OTHER, MEDICAID, SELFPAY ==
--- NOTE | 2023-06-18 13:56 | XR_ITS ---
WS: [id number] Examination: XR shoulder LT min 2V* [id number] Reason for Exam: L SHOULDER PAIN Date: June 18, 2023 Comparison: January 11, 2016 Findings: The bone density is maintained. There is no destruction There is no fracture. There is no anterior dislocation. The left AC joint is intact on these nonstress views. Impression: No displaced fracture or anterior dislocation is identified.
== END 2023-06-18 13:50 | disposition home or self-care (01) ==
PROVIDERS: PCP Nurse Practitioner Family; Visit Provider Nurse Practitioner Family
DX: M25.512 Pain in left shoulder (principal)
CPT/HCPCS: 73030

== ENCOUNTER → 2024-01-15 14:43 | Outpatient (BNVA) | payer OTHER, MEDICAID, SELFPAY | PROVIDERS: PCP Nurse Practitioner Family; Visit Provider Family Medicine | DX: R30.0 Dysuria (principal); R33.9 Retention of urine, unspecified | CPT/HCPCS: 81000; 87086 ==

== ENCOUNTER 2024-01-21 15:45 | Outpatient (CLI) | payer OTHER, MEDICAID, SELFPAY ==
--- NOTE | 2024-01-21 15:45 | USR_ITS ---
PROCEDURE INFORMATION: Exam: US Pelvis Complete, Transabdominal and US Duplex Artery or Vein, Ovaries, Limited Exam date and time: 01/21/2024 3:59 PM Age: 33 years old Clinical indication: Pelvic pain; Additional info: R10.2 - pelvic and perineal pain TECHNIQUE: Imaging protocol: Real-time transabdominal pelvic ultrasound (non-obstetric) with image documentation. Real-time duplex ultrasound scan of the arterial or venous flow of the ovaries with B-mode, color Doppler flow and spectral waveform analysis. Complete pelvic ultrasound. Limited duplex. Duplex exam was performed to evaluate for torsion and other vascular conditions. COMPARISON: US abdomen complete* [id number] 08/24/2020 10:26 AM FINDINGS: Uterus: The uterus measures 8.3 x 5.5 x 4.1 cm. Endometrial thickness is about 1 cm. No masses are seen. Right ovary/adnexa: The right ovary measures 4.0 x 2.2 x 2.2 cm. Follicles are seen. No mass. Normal arterial and venous waveforms on duplex. No evidence for torsion. Left ovary/adnexa: The left ovary measures 4.5 x 2.0 x 2.3 cm. No mass. Normal arterial and venous waveforms on duplex. No evidence for torsion. Intraperitoneal space: No free fluid. Urinary bladder: Normal. US/US pelvic complete* [id number] IMPRESSION: No abnormal findings.
== END 2024-01-21 15:52 | disposition home or self-care (01) ==
PROVIDERS: PCP Nurse Practitioner Family; Visit Provider Nurse Practitioner Family
DX: R10.2 Pelvic and perineal pain (principal)
CPT/HCPCS: 76856; 87624

== ENCOUNTER 2024-04-03 23:29 | Emergency (ER) | payer OTHER, SELFPAY ==
[2024-04-03 23:34] VITALS: BP 103/66; PULSE 66; RESP 15; TEMP 36.7; O2SAT 98; BMI 20.9
--- NOTE | 2024-04-03 23:42 | XRR_ITS ---
PROCEDURE INFORMATION: Exam: XR Left Knee Exam date and time: 04/04/2024 12:13 AM Age: 33 years old Clinical indication: Left; Patient HX: Lt lateral knee pain after fall x 2 days ago; Additional info: Fall L knee pain TECHNIQUE: Imaging protocol: Radiologic exam of the left knee. Views: 3 views. COMPARISON: CR XR ankle LT min 3V* [id number] 04/29/2021 12:02 PM FINDINGS: Bones/joints: No radiographic evidence of fracture. Soft tissues: Normal. Other findings: No effusion. XR/XR knee LT 3V* [id number] IMPRESSION: No radiographic evidence of fracture.
--- NOTE | 2024-04-04 01:13 | ED_ITS ---
HPI - Extremity Problem General: Chief complaint: Extremity Injury, Lower Stated complaint: Left Knee Pain Time Seen by Provider: 04/04/24 01:05 History of Present Illness: 33-year-old female presenting with left knee pain. She states that she fell 2 days ago and heard a pop. She is experienced pain with weightbearing and bending the knee since that time. She has not taken anything at home. She has not iced. She does complain of some paresthesias to the anterior leg inferior to the knee. Related Data Previous Rx's Medication Instructions Recorded venlafaxine 75 mg capsule,extended 75 mg PO QAM #30 caps 02/03/24 release 24 hr ketorolac 10 mg tablet 10 mg PO TID PRN pain #10 tabs 04/04/24 Allergies Allergy/AdvReac Type Severity Reaction Status Date / Time latex Allergy Intermediate ALGY-Hives Verified 04/03/24 23:40 [facility] ED PFSH: Medical History Lupus Recurrent UTI Pyelonephritis Surgical History History of breast augmentation H/O tubal ligation Family History Mother Cancer ovarian Social History Smoking and tobacco/nicotine status: never used tobacco/nicotine Quit status (tobacco/nicotine): has tried quititng Number of times tried to quit tobacco: 10 Second hand smoke exposure: No Alcohol intake: never Substance/Drug Use: current Substance/Drug use frequency: daily Other substance/drug use details: Pain. Marital status: Single Number of children: 3 Current occupational status: unemployed Female Reproductive History: Date of last menstrual period: 03/10/24 Physical Exam Const: COMMON NORMALS: no acute distress GENERAL APPEARANCE: cooperative; not ill appearing and not frail appearing HENMT: COMMON NORMALS: normocephalic, atraumatic and Normal external nose present HEAD & SCALP: normocephalic and atraumatic FACE & SINUS: normal facial exam and face symmetric NOSE: Normal external nose present Eye: COMMON NORMALS: Equal, round and reactive pupils present and EOMs intact bilaterally PUPIL: Yes Equal, round and reactive pupils present Neck/C-Spine: GENERAL: Yes trachea midline Chest: CHEST: Yes Symmetrical chest wall rise Resp: COMMON NORMALS: normal respiratory effort, No retractions, No use of accessory muscles and clear to auscultation bilaterally AUSCULTATION: clear to auscultation bilaterally Cardio: COMMON NORMALS: regular rate and regular rhythm RATE: regular rate RHYTHM: regular rhythm Extremity: NARRATIVE EXTREMITY EXAM: Examination of the left lower extremity reveals no deformity. There is no knee joint effusion. There is diffuse knee tenderness. Active range of motion is to 30 degrees of flexion. 0 degrees of extension. Ligament testing is guarded. Neuro: MOHINDER COMA SCALE: document [facility] findings [place] coma scale eye opening: Spontaneous Mohinder coma scale verbal response: Orientated Mohinder coma scale motor response: Obey commands Mohinder coma scale total score: 15 SENSORY EXAM: Yes extremities (intact) Psych: COMMON NORMALS: speech normal SPEECH: Yes normal speech Skin: COMMON NORMALS: no rashes or lesions noted GENERAL SKIN EXAM: no rashes or lesions noted Course Vital Signs: Vital signs: Vital Signs Temperature 98.1 F 04/03/24 23:34 Pulse Rate 66 04/03/24 23:34 Respiratory Rate 15 04/03/24 23:34 Blood Pressure 103/66 04/03/24 23:34 Pulse Oximetry 98 04/03/24 23:34 Oxygen Delivery Me thod Room Air 04/03/24 23:34 MDM - Extremity (Nontraumatic) Medical Decision Making X-ray is negative. She has no knee joint effusion. She will be placed in a knee immobilizer for weightbearing as tolerated. She will transition into a hinged knee brace which is written for her in a couple of days. Anti- inflammatory pain medication. Outpatient follow-up. Lab Data Radiology Impressions Knee X-Ray 04/03/24 23:42 IMPRESSION: No radiographic evidence of fracture. All radiology interpretation(s) finalized by discharge Discharge Plan Discharge Patient Disposition: Home Clinical Impression: Left knee sprain Condition: Stable Prescriptions: New ketorolac 10 mg tablet 10 mg PO TID PRN (Reason: pain) Qty: 10 0RF No Action venlafaxine 75 mg capsule,extended release 24hr 75 mg PO QAM Qty: 30 0RF Discharge Orders: Discharge ED (Routine); Ordered 04/04/24 Ordered By: Yonathan Ceballos Referrals: Gwen Barr FNP [Primary Care Provider] - 4-7 days Patient Instructions: Knee Sprain (ED), Opioid Safety, Pain Management Activity Restrictions/Additional Instructions: Do not use the knee immobilizer more than 4 to 5 days. Transition to a hinged knee brace that you were written a prescription for after that. You may bear weight as tolerated. Ice can help with pain and swelling. Medication as directed. 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
[2024-04-04] MEDS: oxyCODONE-APAP 5-325 mg Tablet 2 TAB PO (01:33)
== END 2024-04-04 01:33 | disposition home or self-care (01) ==
PROVIDERS: Emergency Provider Emergency Medicine; PCP Nurse Practitioner Family
DX: S83.92XA Sprain of unspecified site of left knee, initial encounter (principal); W19.XXXA Unspecified fall, initial encounter
CPT/HCPCS: 73562; 99283

== ENCOUNTER 2024-05-08 19:32 | Emergency (ER) | payer OTHER, SELFPAY ==
[2024-05-08] VITALS (25 sets, daily range): BP systolic 93–112; BP diastolic 51–66; PULSE 64–103; RESP 16–17; TEMP 36.9; O2SAT 95–99; BMI 20.9
[2024-05-08 20:35] LABS: Basophils % 0.3 %; Hematocrit 43.9 % (36-47); Lymphocytes # 0.5 10^3/uL (0.8-4.8); Lymphocytes % 4.9 %; Mean Corpuscular HGB Conc 32.1 g/dL (30-55); Mean Corpuscular Hemoglobin 25.7 pg (27-33); Mean Platelet Volume 11.5 fL (7.4-10.4); Monocytes # 0.3 10^3/uL (0.2-0.9); Monocytes % 2.9 %; Neutrophils # 9.26 10^3/uL (1.8-7.7); Neutrophils % 91.6 %; Nucleated Red Blood Cells % 0 %; Platelet Count 240 10^3/cmm (157-399); Red Blood Count 5.49 10^6/uL (3.85-5.65); Red Cell Distribution Width 14.9 % (12.1-15.1)
[2024-05-08 20:38] LABS: Alanine Aminotransferase 8 U/L (0-33); Albumin Level 4.4 g/dL (3.5-5.2); Alkaline Phosphatase 57 U/L (35-105); Anion Gap 18.8 (5-19); Aspartate Amino Transferase 12 U/L (0-32); Blood Urea Nitrogen 10 mg/dL (6-20); Calcium 9.3 mg/dL (8.5-10.5); Carbon Dioxide 22 mmol/L (22-29); Chloride 103 mmol/L (98-107); Creatinine Clr Calc Pharmacy 98.3884; Globulin 3.3 g/dL (1.3-4.6); Glomerular Filtration Rate 114.4 mL/min (90-130); Glucose 111 mg/dL (65-115); Lipase 15 U/L (13-60); Osmolality Calculated 290 mOsm/kg (285-295); Potassium 3.8 mmol/L (3.5-5.1); Sodium 140 mmol/L (136-145); Total Bilirubin 0.7 mg/dL (0.15-1.2); Total Protein 7.7 g/dL (6.6-8.7)
[2024-05-08 20:51] LABS: Bilirubin Urine Negative (Negative); Blood Urine Non-haemolysed trace (Negative); Glucose Urine UA Negative (Normal); Ketones Urine 2+ (Negative); Leukocyte Esterase Urine 2+ (Negative); Nitrate Urine Negative (Negative); Protein Urine 2+ (Negative); Urine Appearance Turbid (CLEAR); Urine Color Dark Yellow (Yellow); pH Urine 5.5 (5-7)
[2024-05-08 20:52] LABS: HCG, Serum Qual Negative (Negative)
[2024-05-08 20:54] LABS: Add Urine Microscopic? YES; Bacteria Urine 4+ /hpf; Hyaline Casts Urine 14.35 /lpf; Squamous Epithelial Cell Urine 21-50 /hpf (0-5); Universal Test for UA Present (0); WBC Urine >100 /hpf (0-5)
[2024-05-08 21:05] LABS: Add Urine Culture? No; Mucus Urine 2+ /hpf; Specific Gravity, Urine 1.035 (1.005-1.030)
[2024-05-08] MEDS: ondansetron 4 MG Tablet PO (21:46)
[2024-05-08] MEDS: cephALEXin 500 mg Capsule PO (21:48)
[2024-05-08] MEDS: ketorolac 30 mg/mL INJ IM (22:26)
--- NOTE | 2024-05-08 22:36 | ED_ITS ---
HPI - Nausea/Vomiting/Diarrhea 2 General: Chief complaint: Nausea/Vomiting/Diarrhea Stated complaint: vomitting Time Seen by Provider: 05/08/24 19:46 History of Present Illness: Patient is a 33-year-old female that presents to the emergency department with complaints of suprapubic pain, back pain, nausea vomiting. Onset of symptoms yesterday. Patient reports she has had frequent UTIs. Has not had any antibiotics in the last 30 days. Patient denies chronic medical conditions outside of UTIs. Associated symtoms: Reports dysuria Related Data Previous Rx's Medication Instructions Recorded cephalexin 500 mg capsule 500 mg PO BID 7 days #14 caps 05/08/24 ondansetron 4 mg disintegrating 4 mg PO Q8H 5 days #15 tabs 05/08/24 tablet Allergies Allergy/AdvReac Type Severity Reaction Status Date / Time latex Allergy Intermediate ALGY-Hives Verified 04/13/24 09:17 Review of Systems 2 General: Reports: 10 or more systems reviewed and unremarkable except in HPI and below : Reports: dysuria, urinary frequency and urinary urgency; Denies: flank pain (No new back or flank pain ) PFSH ED 2 PFSH: Medical History Lupus Recurrent UTI Pyelonephritis Surgical History History of breast augmentation H/O tubal ligation Family History Mother Cancer ovarian Social History Smoking and tobacco/nicotine status: current every day tobacco/nicotine user cigarettes Packs smoked per day: 0.5 Years cigarettes smoked: 17 Quit status (tobacco/nicotine): has tried quititng Number of times tried to quit tobacco: 10 Second hand smoke exposure: No Alcohol intake: never Substance/Drug Use: current Substance/Drug use frequency: daily Other substance/drug use details: Pain. Marital status: Single Number of children: 3 Current occupational status: unemployed Physical Exam 2 Const: COMMON NORMALS: no acute distress, patient oriented x3 and alert G ENERAL APPEARANCE: cooperative ORIENTATION/CONSCIOUSNESS: Yes awake, Yes oriented to person, Yes oriented to place and Yes oriented to time Chest: COMMONS NORMALS: normal inspection of the chest Breast/axilla inspection: Yes no chest deformity, asymmetry, normal contours, no nodules, masses, tenderness Resp: COMMON NORMALS: normal respiratory effort, No retractions, No use of accessory muscles and clear to auscultation bilaterally EFFORT & INSPECTION: Yes able to speak in complete sentences and Yes symmetric chest movement A USCULTATION: clear to auscultation bilaterally Cardio: COMMON NORMALS: regular rate, regular rhythm and Peripheral pulses 2+ throughout RATE: regular rate RHYTHM: regular rhythm PERIPHERAL PULSES: Peripheral pulses 2+ throughout GI: COMMON NORMALS: Normal to inspection, nondistended, normoactive bowel sounds present, Soft to palpation, non-tender and No hepatosplenomegaly present INSPECTION: Yes normal to inspection AUSCULTATION: Yes normoactive bowel sounds PALPATION: Yes Soft to palpation and Yes No hepatosplenomegaly present RECTAL EXAM: deferred : COMMON NORMALS: Yes no CVA tenderness BLADDER/KIDNEY EXAM: Yes no CVA tenderness Back/Pelvis: COMMON NORMALS: no CVA tenderness Extremity: COMMON NORMALS: normal to inspection GENERAL: Yes normal exam except as noted Neuro: COMMON NORMALS: patient oriented x3 SENSORIUM/ORIENTATION: Yes alert, Yes oriented to person, Yes oriented to place and Yes oriented to time CRANIAL NERVES: Yes CN normal except as noted Psych: COMMON NORMALS: mental status grossly normal, Normal thought process present, cooperative, activity/motor behavior normal, denies homicidal ideation and denies suicidal ideation THOUGHT PROCESS: Normal thought process present Skin: COMMON NORMALS: no rashes or lesions noted, no wounds and turgor normal GENERAL SKIN EXAM: no rashes or lesions noted and turgor normal Course 2 Vital Signs: Vital signs: Vital Signs Temperature 98.5 F 05/08/24 20:20 Pulse Rate 103 H 05/08/24 20:20 Respiratory Rate 17 05/08/24 20:20 Blood Pressure 112/65 05/08/24 23:05 Pulse Oximetry 99 05/08/24 23:05 Oxygen Delivery Me thod Room Air 05/08/24 20:20 MDM - Nausea/Vomiting/Diarrhea Medical Decision Making Patient was seen in the emergency department for nausea vomiting suprapubic pain and back pain. Onset of symptoms in the last 24 to 48 hours. Patient underwent a laboratory evaluation that included a CBC, CMP, urinalysis, lipase, urine test. Laboratory evaluation reveals no significant leukocytosis or anemias. No thrombocytopenia. Chemistry panel reveals no electrolyte abnormalities, dehydration kidney dysfunction or liver dysfunction. Urine test was negative Urinalysis revealed greater than 100 white blood cells, leukoesterase, 4+ bacteria and nitrates. She was treated here in the emergency department with Keflex was also given Zofran for the nausea. We did a fluid challenge which she tolerated well. She was given Toradol for pain and does report feeling much better. Patient is cleared for discharge home. All questions answered Lab Data 05/08/24 20:10 05/08/24 20:10 Laboratory Results WBC 10.10 10^3/uL (3.29-11.43) 05/08/24 20:10 RBC 5.49 10^6/uL (3.85-5.65) 05/08/24 20:10 Hgb 14.10 g/dL (11.27-16.99) 05/08/24 20:10 Hct 43.9 % (36-47) 05/08/24 20:10 MCV 80.0 fl (85-98) L 05/08/24 20:10 MCH 25.7 pg (27-33) L 05/08/24 20:10 MCHC 32.1 g/dL (30-55) 05/08/24 20:10 RDW 14.9 % (12.1-15.1) 05/08/24 20:10 Plt Count 240 10^3/cmm (157-399) 05/08/24 20:10 MPV 11.5 fL (7.4-10.4) H 05/08/24 20:10 Neut % (Auto) 91.6 % 05/08/24 20:10 Lymph % (Auto) 4.9 % 05/08/24 20:10 [place] % (Auto) 2.9 % 05/08/24 20:10 Eos % (Auto) 0.0 % 05/08/24 20:10 Baso % (Auto) 0.3 % 05/08/24 20:10 Neut # (Auto) 9.26 10^3/uL (1.8-7.7) H 05/08/24 20:10 Lymph # (Auto) 0.5 10^3/uL (0.8-4.8) L 05/08/24 20:10 [place] # (Auto) 0.3 10^3/uL (0.2-0.9) 05/08/24 20:10 Eos # (Auto) 0.0 10^3/uL (0.0-0.8) 05/08/24 20:10 Baso # (Auto) 0.0 10^3/uL (0.0-0.1) 05/08/24 20:10 Nucleated RBC % (auto) 0 % 05/08/24 20:10 Nucleated RBCs # 0.0 /100WBC 05/08/24 20:10 Sodium 140 mmol/L (136-145) 05/08/24 20:10 Potassium 3.8 mmol/L (3.5-5.1) 05/08/24 20:10 Chloride 103 mmol/L (98-107) 05/08/24 20:10 Carbon Dioxide 22 mmol/L (22-29) 05/08/24 20:10 Anion Gap 18.8 (5-19) 05/08/24 20:10 BUN 10 mg/dL (6-20) 05/08/24 20:10 Creatinine 0.6 mg/dL (0.5-0.9) 05/08/24 20:10 GFR Calculation 114.4 mL/min (90-130) 05/08/24 20:10 Glucose 111 mg/dL (65-115) 05/08/24 20:10 Calculated Osmolality 290 mOsm/kg (285-295) 05/08/24 20:10 Calcium 9.3 mg/dL (8.5-10.5) 05/08/24 20:10 Total Bilirubin 0.7 mg/dL (0.15-1.2) 05/08/24 20:10 AST 12 U/L (0-32) 05/08/24 20:10 ALT 8 U/L (0-33) 05/08/24 20:10 Alkaline Phosphatase 57 U/L (35-105) 05/08/24 20:10 Total Protein 7.7 g/dL (6.6-8.7) 05/08/24 20:10 Albumin 4.4 g/dL (3.5-5.2) 05/08/24 20:10 Globulin 3.3 g/dL (1.3-4.6) 05/08/24 20:10 Lipase 15 U/L (13-60) 05/08/24 20:10 HCG, Qual Negative (Negative) 05/08/24 20:10 Urine Color Dark yellow (Yellow) A 05/08/24 20:35 Urine Appearance Turbid (CLEAR) A 05/08/24 20:35 Urine pH 5.5 (5-7) 05/08/24 20:35 Ur Specific [place] 1.035 (1.005-1.030) H 05/08/24 20:35 Urine Protein 2+ (Negative) A 05/08/24 20:35 Urine Glucose (UA) Negative (Normal) 05/08/24 20:35 Urine Ketones 2+ (Negative) H 05/08/24 20:35 Urine Blood Non-haemolysed trace (Negative) 05/08/24 20:35 Urine Nitrate Negative (Negative) 05/08/24 20:35 Urine Bilirubin Negative (Negative) 05/08/24 20:35 Urine Urobilinogen 1.0 mg/dL (Negative) 05/08/24 20:35 Ur Leukocyte Esterase 2+ (Negative) A 05/08/24 20:35 Urine RBC 3-5 /hpf (0-2) 05/08/24 20:35 Urine WBC >100 /hpf (0-5) H 05/08/24 20:35 Ur Squamous Epith Cells 21-50 /hpf (0-5) 05/08/24 20:35 Amorphous Sediment Not Reportable 05/08/24 20:35 Urine Bacteria 4+ /hpf (NONE) H 05/08/24 20:35 Hyaline Casts 14.35 /lpf 05/08/24 20:35 Urine Mucus 2+ /hpf 05/08/24 20:35 No radiology studies performed this visit Discharge Plan Discharge Patient Disposition: Home Clinical Impression: Urinary tract infection, Nausea & vomiting Condition: Stable Prescriptions: New cephalexin 500 mg capsule 500 mg PO BID 7 Days Qty: 14 0RF ondansetron 4 mg tablet,disintegrating 4 mg PO Q8H 5 Days Qty: 15 0RF Discharge Orders: Discharge ED (Routine); Ordered 05/08/24 Ordered By: Roxann Vallejo McTeer Referrals: Gwen Barr FNP [Primary Care Provider] - Discharge Diet: Advance as tolerated Discharge Activity: Resume usual activity Patient Instructions: Pain Management, Urinary Tract Infection - Women Activity Restrictions/Additional Instructions: Please follow-up with your primary care doctor if you do not feel you are getting better. You may also return to the emergency department for new concerning or worsening symptoms Coding Level of Care Code ED Law Writer for Bong Matthew
== END 2024-05-08 23:57 | disposition home or self-care (01) ==
PROVIDERS: Emergency Medicine; Emergency Provider Nurse Practitioner; PCP Nurse Practitioner Family
DX: N39.0 Urinary tract infection, site not specified (principal); R11.2 Nausea with vomiting, unspecified; F17.210 Nicotine dependence, cigarettes, uncomplicated
CPT/HCPCS: 36415; 80053; 81001; 83690; 84703; 85025; 96372; 99284; J1885; Q0162

== ENCOUNTER 2024-06-27 13:54 | Emergency (ER) | payer SELFPAY ==
[2024-06-27 13:57] VITALS: BP 109/73; PULSE 97; RESP 14; TEMP 36.4; O2SAT 97; BMI 19.5
--- NOTE | 2024-06-27 15:38 | ED_ITS ---
HPI - Dental/Oral General: Chief complaint: Dental/Oral Stated complaint: facial swelling, tooth pain Time Seen by Provider: 06/27/24 14:41 Source: patient Mode of arrival: ambulatory Limitations: no limitations History of Present Illness: 33-year-old female who states that she h as had dental pain for the week. States she has had a broken tooth left lower molar she been having swelling to left side she does have swelling to the face she has pain she rates a 7 out of 10 she denies any fever denies difficulty swallowing denies any trismus Associated symptoms: Denies fever(s) Related Data Previous Rx's ?Medication ?Instructions ?Recorded clindamycin HCl 300 mg capsule 300 mg PO Q8H 7 days #2 1 caps 06/27/24 (Cleocin HCl) Allergies Allergy/AdvReac Type Severity Reaction Status Date / Time latex Allergy Intermediate ALGY-Hives Verified 06/27/24 14:01 Review of Systems Const: Denies: fever(s), chills, body aches or change in appetite ENMT: Reports: dental pain; Denies: throat pain Card: Denies: chest pain Resp: Denies: dyspnea GI: Denies: abdominal pain, nausea, vomiting or diarrhea Musc: Denies: neck pain or back pain Skin/Breast: Denies: rash Neuro: Denies: headache(s) PFSH ED PFSH: Medical History Lupus Recurrent UTI Pyelonephritis Surgical History History of breast augmentation H/O tubal ligation Family History Mother Cancer ovarian Social History Smoking and tobacco/nicotine status: current every day tobacco/nicotine user cigarettes Packs smoked per day: 0.5 Years cigarettes smoked: 17 Quit status (tobacco/nicotine): has tried quititng Number of times tried to quit tobacco: 10 Second hand smoke exposure: No Alcohol intake: never Substance/Drug Use: current Substance/Drug use frequency: daily Other substance/drug use details: Pain. Marital status: Single Number of children: 3 Current occupational status: unemployed Physical Exam Const: COMMON NORMALS: no acute distress, patient oriented x3 and healthy appearing HENMT: COMMON NORMALS: normocephalic and atraumatic HEAD & SCALP: normocephalic and atraumatic OTHER: Tenderness over left lower molar does have a dental abscess as well no trismus Eye: COMMON NORMALS: conjunctivae normal CONJUNCTIVA: Yes conjunctivae normal Neck/C-Spine: COMMON NORMALS: full ROM and supple Chest: COMMONS NORMALS: normal inspection of the chest Resp: COMMON NORMALS: normal respiratory effort Cardio: COMMON NORMALS: regular rate RATE: regular rate Extremity: COMMON NORMALS: normal to inspection and full ROM Neuro: COMMON NORMALS: patient oriented x3, moves all extremities and no focal motor deficits Psych: COMMON NORMALS: mental status grossly normal, Normal thought process present and cooperative THOUGHT PROCESS: Normal thought process present Skin: COMMON NORMALS: no rashes or lesions noted and no wounds GENERAL SKIN EXAM: no rashes or lesions noted Procedures Abscess I/D Site: other (dental left lower molar) Side (if applicable): left Technique: incised with #11 blade Irrigation: No Nerve Block Nerve Block 1: Time out performed: Yes Local Anesthetic: bupivacaine 0.5% Amount of anesthesia used (mL): 8 Side: left Intraoral Nerve Block: inferior alveolar Procedure Successful: Yes Patient Tolerated Procedure: well Complications: none Course Vital Signs: Vital signs: Vital Signs Temperature 97.5 F L 06/27/24 13:57 Pulse Rate 97 06/27/24 13:57 Respiratory Rate 14 06/27/24 13:57 Blood Pressure 109/73 06/27/24 13:57 Pulse Oximetry 97 06/27/24 13:57 Oxygen Delivery Me thod Room Air 06/27/24 13:57 MDM - Dental/Oral Medical Decision Making Patient presents here with a dental abscess did nerve block and incised and drained the abscess we will start on clindamycin she is to follow-up with her dentist return if worsening she had no trismus protecting her airway. Medical Records I reviewed the patient's medical records. No radiology studies performed this visit Discharge Plan Discharge Patient Disposition: Home Clinical Impression: Dental abscess Condition: Stable Prescriptions: New clindamycin HCl [Cleocin HCl] 300 mg capsule 300 mg PO Q8H 7 Days Qty: 21 0RF Discharge Orders: Discharge ED (Routine); Ordered 06/27/24 Ordered By: Jarocho Vergara Referrals: Gwen Barr FNP [Primary Care Provider] - Discharge Diet: Advance as tolerated Discharge Activity: Resume usual activity Patient Instructions: Dental Abscess (ED) Print Language: Amharic Coding Level of Care Code ED Customer Service Attendant for Bong Matthew
[2024-06-27 16:08] VITALS: BP 111/63; PULSE 88; O2SAT 98
== END 2024-06-27 16:10 | disposition home or self-care (01) ==
PROVIDERS: Emergency Provider Emergency Medicine; PCP Nurse Practitioner Family
DX: K04.7 Periapical abscess without sinus (principal); F17.210 Nicotine dependence, cigarettes, uncomplicated
CPT/HCPCS: 41800; 99283

== ENCOUNTER 2024-11-04 18:42 | Emergency (ER) | payer SELFPAY ==
[2024-11-04 18:51] VITALS: BP 96/67; PULSE 103; RESP 17; TEMP 36.8; O2SAT 98; BMI 22.9
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
[2024-11-04] MEDS: HYDROcodone-acetaminophen 5-325 mg Tablet 1 TAB PO (21:13)
== END 2024-11-04 21:14 | disposition home or self-care (01) ==
PROVIDERS: Emergency Provider Physician Assistant; PCP Nurse Practitioner Family
DX: S80.02XA Contusion of left knee, initial encounter (principal); F17.210 Nicotine dependence, cigarettes, uncomplicated; V09.9XXA Pedestrian injured in unspecified transport accident, initial encounter; Y92.481 Parking lot as the place of occurrence of the external cause
CPT/HCPCS: 73562; 99283; J9999

== ENCOUNTER 2024-11-30 18:13 | Emergency (ER) | payer SELFPAY ==
[2024-11-30 18:16] VITALS: BP 103/65; PULSE 63; RESP 16; TEMP 37.1; O2SAT 99
--- NOTE | 2024-11-30 18:23 | XRR_ITS ---
PROCEDURE INFORMATION: Exam: XR Left Knee Exam date and time: 11/30/2024 6:29 PM Age: 34 years old Clinical indication: Knee; Left; Pain after falling 2 months ago; Additional info: Trauma TECHNIQUE: Imaging protocol: Radiologic exam of the left knee. Views: 3 views. COMPARISON: CR (LOW EXM, ) 11/04/2024 8:30 PM FINDINGS: Bones/joints: Intact. No acute fracture detected. Joint spaces are preserved. Soft tissues: Unremarkable. XR/XR knee LT 3V* [id number] IMPRESSION: No acute findings.
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
[2024-11-30 18:49] VITALS: BP 109/78; PULSE 62; RESP 15; O2SAT 99
[2024-11-30 20:22] VITALS: BP 100/61; PULSE 69; O2SAT 99
== END 2024-11-30 20:05 | disposition home or self-care (01) ==
PROVIDERS: Emergency Provider Emergency Medicine; PCP Nurse Practitioner Family
DX: S83.92XA Sprain of unspecified site of left knee, initial encounter (principal); F17.210 Nicotine dependence, cigarettes, uncomplicated; V09.9XXA Pedestrian injured in unspecified transport accident, initial encounter
CPT/HCPCS: 29530; 73562; 99283; E0114; L1830

== ENCOUNTER → 2024-12-07 08:21 | Outpatient (BNVA) | payer SELFPAY | PROVIDERS: PCP Nurse Practitioner Family; Visit Provider Orthopaedic Surgery | DX: S83.92XA Sprain of unspecified site of left knee, initial encounter (principal); M25.562 Pain in left knee; X58.XXXA Exposure to other specified factors, initial encounter | CPT/HCPCS: 73562 ==

== ENCOUNTER 2024-12-10 13:32 | Outpatient (CLI) | payer SELFPAY ==
--- NOTE | 2024-12-10 13:45 | MR_ITS ---
WS: [id number] MRI LEFT KNEE HISTORY: Knee pain COMPARISON: Radiograph 12/07/2024 Anterior cruciate ligament: Intact. Posterior cruciate ligament: Intact. Medial collateral ligament: Intact. Posterior lateral corner structures: Lobulated cystic mass over the LEFT lateral knee at the level of the joint. Lobulated cystic mass measures 3.5 x 0.6 cm. Medial menisci: Intact. Normal signal, size and shape. Lateral meniscus: Abnormal anterior horn. There is a tear within the anterior horn. This tear is contiguous with the complex cystic mass extending over the lateral knee. This is most likely a large meniscal cyst associated with a meniscal tear of the anterior horn. Extensor mechanism: Distal quadriceps tendon and patellar tendons are intact. Fluid and soft tissue: No joint effusion. No Mcghee's cyst. Osseous and articular structures: Patellofemoral compartment: Normal. Medial compartment: Short segment area of chondral delamination involving the medial femoral condyle towards the intercondylar notch. This is best visualized on the coronal T2 sequence, image 8 of series 601. Lateral compartment: Very minimal narrowing. No fractures or marrow edema. MR/MR knee LT wo con* [id number] IMPRESSION: 1. Large lobulated meniscal cyst measuring 3.5 x 0.6 cm. Meniscal cyst tracks to a tear within the anterior horn lateral knee. 2. Short segment chondral delamination involving the medial femoral condyle to wards the intercondylar notch. 3. No fracture or marrow edema.
== END 2024-12-10 13:33 | disposition home or self-care (01) ==
PROVIDERS: PCP Nurse Practitioner Family; Visit Provider Orthopaedic Surgery
DX: M25.562 Pain in left knee (principal); S83.282A Other tear of lateral meniscus, current injury, left knee, initial encounter; M23.042 Cystic meniscus, anterior horn of lateral meniscus, left knee; X58.XXXA Exposure to other specified factors, initial encounter
CPT/HCPCS: 73721

== ENCOUNTER → 2025-03-30 16:11 | Outpatient (BNVA) | payer SELFPAY | PROVIDERS: Visit Provider Nurse Practitioner Psychiatric/Mental Health | DX: Z79.899 Other long term (current) drug therapy (principal) | CPT/HCPCS: 80053; 80061; 82306; 83036 ==

== ENCOUNTER → 2025-04-18 14:32 | Outpatient (BNVA) | payer SELFPAY | PROVIDERS: Visit Provider Nurse Practitioner Family | DX: R53.83 Other fatigue (principal) | CPT/HCPCS: 80053; 82607; 84443; 85025 ==

== ENCOUNTER → 2025-04-27 13:27 | Outpatient (BNVA) | payer BC, SELFPAY | PROVIDERS: Visit Provider Nurse Practitioner Family | DX: R30.0 Dysuria (principal); N39.0 Urinary tract infection, site not specified | CPT/HCPCS: 81003; 87086 ==